=== PATIENT | male | born 1965 | race Caucasian/White ===

== ENCOUNTER 2018-10-22 20:10 | Observation (INO) | payer MEDICAID, SELFPAY ==
[2018-10-22] VITALS (24 sets, daily range): BP systolic 92–133; BP diastolic 50–83; PULSE 54–72; RESP 12–21; TEMP 36.5–36.9; O2SAT 95–98
[2018-10-22 20:24] LABS: Abs Immature Grans 0.02 k/cumm (0.0-0.09); Absolute Basophil Count 0.04 k/cumm (0.0-0.2); Absolute Eosinophil Count 0.26 k/cumm (0.0-0.7); Absolute Lymphocyte Count 2.63 k/cumm (1.2-3.4); Absolute Monocyte Count 1.11 k/cumm (0.11-0.7); Absolute Neutrophil Count 5.06 k/cumm (1.2-6.7); Basophils % 0.4; Eosinophils % 2.9; HCT 37.5 % (40.0-50.0); HGB 12.9 g/dL (13.5-17.5); Immature Grans % 0.2; Lymphocytes % 28.8; Mean Corp. HGB Concentration 34.4 g/dL (32.0-36.0); Mean Corpuscular Hemoglobin 31.1 pg (27.0-33.0); Mean Corpuscular Volume 90.4 fL (80-95); Mean Platelet Volume 11.2 fL (8.0-11.0); Monocytes % 12.2; Neutrophils % 55.5; Platelet Count 216 x1000/uL (130-400); RBC 4.15 m/cumm (4.50-6.00); RBC Distribution Width 12.9 % (11.8-14.1); White Blood Cell Count 9.12 k/cumm (4.4-10.8)
--- NOTE | 2018-10-22 20:24 | W.ED.GENAD ---
Discharge Plan Disposition Patient Disposition: [facility] INPATIENT Condition: Stable Discharge Details Chief Complaint: OD/Poison Clinical Impression: Drug overdose, intentional Primary Care Provider: Bladimir Gomes ED Provider: Myron Guadalupe Home Meds and New Rx's Prescriptions: No Action tizanidine 4 mg Tablet 4 mg PO TID RF: 0 prazosin 1 mg Capsule 1 mg PO QPM RF: 0 citalopram [Celexa] 20 mg Tablet 20 mg PO DAILY RF: 0 buspirone 10 mg Tablet 10 mg PO TID RF: 0 divalproex [Depakote ER] 500 mg Tablet Extended Release 24 Hr 500 mg PO DAILY RF: 0 divalproex [Depakote ER] 500 mg Tablet Extended Release 24 Hr 500 mg PO DAILY RF: 0 Medical Decision Making 53 yo male with hx of depression comes in with chief complaint of SI. He states he has felt depressed for quite sometime and tonight decided to take all his meds around 6pm to try and harm himself. He is unsure how much of each med he took. He is clinically sober, caox4 without deficits on exam and denies alcohol or drug use tonight (does use marijuana occasionally). Is Hd stable. I discusssed case with poison control and they advised not give charcoal given if he becomes somnolent or has n/v would aspirate. They recommend monitoring overnight and q6 hour depakote levels until clear down trending depakote level. Will order tox labs as well and monitor pt remains stable, labs unremarkable, depakote level 57. Given he has to be monitored overnight before he can be medically cleared will admit overnight for repeat depakote levels and monitoring. Differential Diagnosis drug overdose, depression, si Medical Records Medical records reviewed: Yes I reviewed the patient's medical records. Lab Data Lab results reviewed: Yes I reviewed the patient's lab results. ECG Data Attestation: I personally reviewed and interpreted this ECG (s) as follows: Prior ECG tracings: not available for review Interpretation: sinus rhythm, rate of 60, qtc 426, no acute st t wave ischemic findings HPI General Mode of arrival: EMS. Date/Time Provider Initiated Documentation: 10/22/18 20:12. Limitations to Documentation: no limitations. Information obtained by: patient. History of Present Illness 53 year old M presents to the emergency department with the chief complaint of drug overdose , described as moderate, Patient reports no radiation. Patient started experiencing this hour(s) (2) and it has been constant. No relieving factors improve symptom(s), No exacerbating factors reported . Patient notes other (depression). Patient did receive the following treatments prior to arrival, none Related Data Home Medications Medication Instructions Recorded Confirmed buspirone 10 mg PO TID 10/22/18 10/22/18 citalopram [Celexa] 20 mg PO DAILY 10/22/18 10/22/18 divalproex [Depakote ER] 500 mg PO DAILY 10/22/18 10/22/18 divalproex [Depakote ER] 500 mg PO DAILY 10/22/18 10/22/18 prazosin 1 mg PO QPM 10/22/18 10/22/18 tizanidine 4 mg PO TID 10/22/18 10/22/18 Allergies Allergy/AdvReac Type Severity Reaction Status Date / Time trazodone Allergy Unverified 10/22/18 20:13 morphine AdvReac Nausea Unverified 10/22/18 20:13 General Stated Complaint: OD/Poison ZO: 2 Review of Systems Review of Systems All systems reviewed & are unremarkable except as noted in HPI and below Constitutional Denies chills and Denies fever(s) Cardiovascular Denies chest pain and Denies dyspnea Respiratory Denies cough and Denies dyspnea Gastrointestinal Denies abdominal pain, Denies nausea and Denies vomiting Integumentary/Breasts Denies rash PFSH Medical History PTSD (post-traumatic stress disorder) (Acute) Degenerative arthritis (Chronic) Depression (Chronic) Social History Smoking/Tobacco Use Status: Current every day Tobacco Type: cigarettes Tobacco: How many years used: 36 Alcohol Intake: former Drug use: Daily Substance use type: marijuana Do you feel safe at home: No Do you feel safe in your relationship?: No Additional Social history: Pt wont specify why he doesnt feel safe at home, I just dont feel safe anywhere Exam Const General: no acute distress Orientation: alert HENNV Head: normal to inspection Ears: external ears normal General nose exam: external nose normal Mouth: moist mucous membranes Eyes General: appearance normal, both eyes and all related structures Neck Neck: normal visual inspection Resp Effort & Inspection: normal respiratory effort and able to speak in complete sentences Cardio Rate: regular rate Skin General skin exam: no rashes or lesions noted Neuro General: alert and oriented x3 Extrem General: normal to inspection Psych Speech and Movement: speech and movement normal Course Vital Signs Temperature 36.9 C 10/22/18 20:10 Pulse 63 10/22/18 20:10 Respiratory Rate 16 10/22/18 20:10 Blood Pressure 133/83 10/22/18 20:10 Pulse Oximetry 98 10/22/18 20:10 Temperature 36.9 C 10/22/18 20:10 Temperature Source Skin 10/22/18 20:10 Pulse 63 10/22/18 20:10 Respiratory Rate 16 10/22/18 20:10 Blood Pressure 133/83 10/22/18 20:10 Blood Pressure Position Sitting 10/22/18 20:10 Pulse Oximetry 98 10/22/18 20:10 Oxygen Delivery Method Room Air 10/22/18 20:10 Oxygen Flow Rate 0 10/22/18 20:10
--- NOTE | 2018-10-22 20:34 | ED.GENADUL_ITS ---
Discharge Plan Disposition Patient Disposition: [facility] INPATIENT Condition: Stable Discharge Details Chief Complaint: OD/Poison Clinical Impression: Drug overdose, intentional Primary Care Provider: Bladimir Gomes ED Provider: Myron Guadalupe Home Meds and New Rx's Prescriptions: No Action tizanidine 4 mg Tablet 4 mg PO TID RF: 0 prazosin 1 mg Capsule 1 mg PO QPM RF: 0 citalopram [Celexa] 20 mg Tablet 20 mg PO DAILY RF: 0 buspirone 10 mg Tablet 10 mg PO TID RF: 0 divalproex [Depakote ER] 500 mg Tablet Extended Release 24 Hr 500 mg PO DAILY RF: 0 divalproex [Depakote ER] 500 mg Tablet Extended Release 24 Hr 500 mg PO DAILY RF: 0 Medical Decision Making 53 yo male with hx of depression comes in with chief complaint of SI. He states he has felt depressed for quite sometime and tonight decided to take all his meds around 6pm to try and harm himself. He is unsure how much of each med he took. He is clinically sober, caox4 without deficits on exam and denies alcohol or drug use tonight (does use marijuana occasionally). Is Hd stable. I discusssed case with poison control and they advised not give charcoal given if he becomes somnolent or has n/v would aspirate. They recommend monitoring overnight and q6 hour depakote levels until clear down trending depakote level. Will order tox labs as well and monitor pt remains stable, labs unremarkable, depakote level 57. Given he has to be monitored overnight before he can be medically cleared will admit overnight for repeat depakote levels and monitoring. Differential Diagnosis drug overdose, depression, si Medical Records Medical records reviewed: Yes I reviewed the patient's medical records. Lab Data Lab results reviewed: Yes I reviewed the patient's lab results. ECG Data Attestation: I personally reviewed and interpreted this ECG (s) as follows: Prior ECG tracings: not available for review Interpretation: sinus rhythm, rate of 60, qtc 426, no acute st t wave ischemic findings HPI General Mode of arrival: EMS . Date/Time Provider Initiated Documentation: 10/22/18 20:12 . Limitations to Documentation: no limitations . Information obtained by: patient . History of Present Illness 53 year old M presents to the emergency department with the chief complaint of drug overdose , described as moderate, Patient reports no radiation. Patient started experiencing this hour(s) (2) and it has been constant. No relieving factors improve symptom(s), No exacerbating factors reported . Patient notes other (depression). Patient did receive the following treatments prior to arrival, none Related Data Home Medications Medication Instructions Recorded Confirmed buspirone 10 mg PO TID 10/22/18 10/22/18 citalopram [Celexa] 20 mg PO DAILY 10/22/18 10/22/18 divalproex [Depakote ER] 500 mg PO DAILY 10/22/18 10/22/18 divalproex [Depakote ER] 500 mg PO DAILY 10/22/18 10/22/18 prazosin 1 mg PO QPM 10/22/18 10/22/18 tizanidine 4 mg PO TID 10/22/18 10/22/18 Allergies Allergy/AdvReac Type Severity Reaction Status Date / Time trazodone Allergy Unverified 10/22/18 20:13 morphine AdvReac Nausea Unverified 10/22/18 20:13 General Stated Complaint: OD/Poison ZO: 2 Review of Systems Review of Systems All systems reviewed & are unremarkable except as noted in HPI and below Constitutional Denies chills and Denies fever(s) Cardiovascular Denies chest pain and Denies dyspnea Respiratory Denies cough and Denies dyspnea Gastrointestinal Denies abdominal pain, Denies nausea and Denies vomiting Integumentary/Breasts Denies rash PFSH Medical History PTSD (post-traumatic stress disorder) (Acute) Degenerative arthritis (Chronic) Depression (Chronic) Social History Smoking/Tobacco Use Status: Current every day Tobacco Type: cigarettes Tobacco: How many years used: 36 Alcohol Intake: former Drug use: Daily Substance use type: marijuana Do you feel safe at home: No Do you feel safe in your relationship?: No Additional Social history: Pt wont specify why he doesnt feel safe at home, I just dont feel safe anywhere Exam Const General: no acute distress Orientation: alert HENRI Head: normal to inspection Ears: external ears normal General nose exam: external nose normal Mouth: moist mucous membranes Eyes General: appearance normal, both eyes and all related structures Neck Neck: normal visual inspection Resp Effort & Inspection: normal respiratory effort and able to speak in complete sentences Cardio Rate: regular rate Skin General skin exam: no rashes or lesions noted Neuro General: alert and oriented x3 Extrem General: normal to inspection Psych Speech and Movement: speech and movement normal Course Vital Signs Temperature 36.9 C 10/22/18 20:10 Pulse 63 10/22/18 20:10 Respiratory Rate 16 10/22/18 20:10 Blood Pressure 133/83 10/22/18 20:10 Pulse Oximetry 98 10/22/18 20:10 Temperature 36.9 C 10/22/18 20:10 Temperature Source Skin 10/22/18 20:10 Pulse 63 10/22/18 20:10 Respiratory Rate 16 10/22/18 20:10 Blood Pressure 133/83 10/22/18 20:10 Blood Pressure Position Sitting 10/22/18 20:10 Pulse Oximetry 98 10/22/18 20:10 Oxygen Delivery Method Room Air 10/22/18 20:10 Oxygen Flow Rate 0 10/22/18 20:10
[2018-10-22] MEDS: Nicotine 21 MG/24 HR PATCH (20:35)
[2018-10-22 20:36] LABS: PTT Activated 22.2 sec (21.0-31.4); Prothrombin Time 9.7 sec (9.3-11.0)
[2018-10-22 20:38] LABS: ALT 16 U/L (12-78); AST 8 U/L (15-37); Albumin 3.1 g/dL (3.4-5.0); Alkaline Phosphatase 82 U/L (46-116); Anion Gap 9.1 mmol/L (3-11); BUN 16 mg/dL (7-18); Bilirubin, Total 0.1 mg/dL (0.2-1.0); CO2 25.9 mmol/L (21.0-32.0); CREATININE 0.91 mg/dL (0.70-1.30); Calcium 8.1 mg/dL (8.5-10.1); Chloride 110 mmol/L (98-107); Glucose 92 mg/dL (70-100); Magnesium 2.1 mg/dL (1.8-2.4); Potassium 3.4 mmol/L (3.5-5.1); Sodium 145 mmol/L (136-145); Total Protein 5.8 g/dL (6.4-8.2)
[2018-10-22 20:45] LABS: Acetaminophen < 2 ug/mL (10-30); ETHANOL BLOOD < 3.0 mg/dL (<3); VALPROIC ACID 57.7 ug/mL (50-100)
[2018-10-22 20:50] LABS: Bilirubin Negative (Negative); Blood Negative (Negative); Clarity Clear; Glucose Negative (Negative); Ketones Negative (Negative); Leukocyte Esterase Negative (Negative); Nitrite Negative (Negative); Urobilinogen 0.2 EU/dL (Up TO 0.2); pH 6.5 (5-8)
[2018-10-22 20:56] LABS: *AMPHETAMINES SCREEN URINE Negative (Negative); *BARBITURATES SCREEN URINE Negative (Negative); *BENZODIAZEPINES SCREEN URINE Negative (Negative); Cannabinoids THC POSITIVE (Negative); Cocaine Screen,Urine Negative (Negative); METHADONE URINE SCREEN Negative (Negative); OPIATES URINE SCREEN Negative (Negative); Tricyclic Antidepressants Negative (Negative)
[2018-10-22] MEDS: LORazepam 1 MG TAB PO (21:08)
--- NOTE | 2018-10-22 21:43 | HPE_ITS ---
Date of service: 10/22/18 Time of Service: 21:34 Assessment and Plan (1) Overdose: Current visit: Yes Status: Acute Drug OD with suicidal ideation. Clinically stable. Will monitor on telemetry with serial Depakote levels. Once medically cleared will have mental health consult. Will of course hold all usual medications. History of Present Illness Chief Complaint: OD Narrative: 53 male with h/o depression, PTSD, anxiety -- says he has been frustrated at not feeling well and tonight took about thirty of his various pills, which include Buspar, Celexa, Depakote, Prazosin, and Zanaflex. In ER was [id number] stable, Depakote level 56. Poison control advised monitor with periodic Depakote levls until decreasing. Patient admitted for further management. Aside from a certain restlessness patient states he feels his usual self. Review of Systems Review of Systems All systems reviewed & are unremarkable except as noted in HPI and below PFSH Medical History PTSD (post-traumatic stress disorder) (Acute) Degenerative arthritis (Chronic) Depression (Chronic) Social History Smoking/Tobacco Use Status: Current every day Tobacco Type: cigarettes Tobacco: How many years used: 36 Alcohol Intake: former Drug use: Daily Substance use type: marijuana Do you feel safe at home: No Do you feel safe in your relationship?: No Additional Social history: Pt wont specify why he doesnt feel safe at home, I just dont feel safe anywhere Meds Home Medications Medication Instructions Recorded Confirmed Type buspirone 10 mg PO TID 10/22/18 10/22/18 History citalopram [Celexa] 20 mg PO DAILY 10/22/18 10/22/18 History divalproex [Depakote ER] 500 mg PO DAILY 10/22/18 10/22/18 History divalproex [Depakote ER] 500 mg PO DAILY 10/22/18 10/22/18 History prazosin 1 mg PO QPM 10/22/18 10/22/18 History tizanidine 4 mg PO TID 10/22/18 10/22/18 History Allergies Allergy/AdvReac Type Severity Reaction Status Date / Time trazodone Allergy Unverified 10/22/18 20:13 morphine AdvReac Nausea Unverified 10/22/18 20:13 Exam Narrative Exam Narrative: 123/79, 72, 18, 36.9, 97%sat. HEENT atraumatic, neck supple, lungs clear, heart RRR, abdomen +BS, soft and NT, /rectal deferred, extr no edema, neuro Ox3, lucid, non-focal Results Labs : 10/22/18 20:14 10/22/18 20:14 Laboratory Results - last 24 hr 10/22/18 10/22/18 10/22/18 20:14 20:14 20:14 WBC RBC Hgb Hct MCV MCH MCHC RDW Plt Count MPV Immature Gran % Neutrophils % Lymphocytes % Monocytes % Eosinophils % Basophils % Absolute Neutrophils Absolute Lymphocytes Absolute Monocytes Absolute Eosinophils Absolute Basophils PT INR APTT Sodium 145 Potassium 3.4 L Chloride 110 H Carbon Dioxide 25.9 Anion Gap 9.1 BUN 16 Creatinine 0.91 Estimated GFR/1.73 m2 >= 60.00 Glucose 92 Calcium 8.1 L Magnesium 2.1 Total Bilirubin 0.1 L AST 8 L ALT 16 Alkaline Phosphatase 82 Total Protein 5.8 L Albumin 3.1 L Urine Color Urine Clarity Urine pH Ur Specific [place] Urine Protein Urine Ketones Urine Blood Urine Nitrite Urine Bilirubin Urine Urobilinogen Ur Leukocyte Esterase Urine Glucose Urine Opiates Screen Urine Methadone Screen Acetaminophen < 2 L Ur Barbiturates Screen Total Valproic Acid 57.7 Ur Tricyclics Screen Ur Amphetamines Screen U Benzodiazepines Scrn Urine Cocaine Screen Ur THC Screen Ethyl Alcohol < 3.0 10/22/18 10/22/18 10/22/18 20:14 20:14 20:35 WBC 9.12 RBC 4.15 L Hgb 12.9 L Hct 37.5 L MCV 90.4 MCH 31.1 MCHC 34.4 RDW 12.9 Plt Count 216 MPV 11.2 H Immature Gran % 0.2 Neutrophils % 55.5 Lymphocytes % 28.8 Monocytes % 12.2 Eosinophils % 2.9 Basophils % 0.4 Absolute Neutrophils 5.06 Absolute Lymphocytes 2.63 Absolute Monocytes 1.11 H Absolute Eosinophils 0.26 Absolute Basophils 0.04 PT 9.7 INR 1.0 APTT 22.2 Sodium Potassium Chloride Carbon Dioxide Anion Gap BUN Creatinine Estimated GFR/1.73 m2 Glucose Calcium Magnesium Total Bilirubin AST ALT Alkaline Phosphatase Total Protein Albumin Urine Color Yellow Urine Clarity Clear Urine pH 6.5 Ur Specific [place] 1.010 Urine Protein Negative Urine Ketones Negative Urine Blood Negative Urine Nitrite Negative Urine Bilirubin Negative Urine Urobilinogen 0.2 Ur Leukocyte Esterase Negative Urine Glucose Negative Urine Opiates Screen Urine Methadone Screen Acetaminophen Ur Barbiturates Screen Total Valproic Acid Ur Tricyclics Screen Ur Amphetamines Screen U Benzodiazepines Scrn Urine Cocaine Screen Ur THC Screen Ethyl Alcohol 10/22/18 20:35 WBC RBC Hgb Hct MCV MCH MCHC RDW Plt Count MPV Immature Gran % Neutrophils % Lymphocytes % Monocytes % Eosinophils % Basophils % Absolute Neutrophils Absolute Lymphocytes Absolute Monocytes Absolute Eosinophils Absolute Basophils PT INR APTT Sodium Potassium Chloride Carbon Dioxide Anion Gap BUN Creatinine Estimated GFR/1.73 m2 Glucose Calcium Magnesium Total Bilirubin AST ALT Alkaline Phosphatase Total Protein Albumin Urine Color Urine Clarity Urine pH Ur Specific [place] Urine Protein Urine Ketones Urine Blood Urine Nitrite Urine Bilirubin Urine Urobilinogen Ur Leukocyte Esterase Urine Glucose Urine Opiates Screen Negative Urine Methadone Screen Negative Acetaminophen Ur Barbiturates Screen Negative Total Valproic Acid Ur Tricyclics Screen Negative Ur Amphetamines Screen Negative U Benzodiazepines Scrn Negative Urine Cocaine Screen Negative Ur THC Screen Positive Ethyl Alcohol Last Vital Signs Temp 36.9 C 10/22/18 20:10 Pulse 68 10/22/18 20:46 Resp 18 10/22/18 21:10 BP 123/72 10/22/18 20:46 Pulse Ox 97 10/22/18 21:10
--- NOTE | 2018-10-22 22:18 | PDOC.CMSAFED ---
Care Management Safety Plan S/O: Stevie has been medicated with Ativan 1.0 mg P.0. and is sound asleep at this time. Unable to interview him. Review of records shows that this is the first ER visit at [facility] since 2010 and he gets most of his care through [facility] and the [facility]. According to the physician documentation and report from Nursing, Stevie intentionally swallowed a large number of pills from 4 bottles of his home medications. One of the medications was Depakote. Apparently he has been quite depressed over his current life situation. Lives with his mother in [facility] and suffers from PTSD, MS, Chronic pain and is now . He is a smoker. Nurse reports that he clearly stated he knows his rights and can not be held here against his will. Has been cooperative. Nicotine patch applied and he did eat a light meal. Physician stated he will need to be monitored for at least 12 hours before before examination for medical clearance and MH Consult for Psyh Eval. Will need to be on telemetry overnight. Nursing reports that Stevie stated he did not intend t kill himself he just wanted all of the pain to stop and impulsively swallowed his pills. [facility] brick kiln worker was contacted and an ambulance was sent to his home. CM will respond to assess patient after patient has been medically cleared and assessed by screener. If screener deems patient meets criteria for psychiatric stabilization CM will facilitate interdepartmental huddle with [facility] screener for safety planning considerations and meet with patient to review [facility] policy and safety plan, establish individual wishes for treatment and maintain patient rights. In the interim; please note safety plan below to guide patient care while awaiting further assessment and medical clearance. Huddle: 22:00 Dr. Aceves, Kacy Castillo, Hazardous Materials Driver, SRIDEVI Tripp, SRIDEVI Kauffman-DEVIN INTERIM SAFETY PLAN: 10/22/18 22:30 ED Room #2 and transfer to /S Room 226 WB 1. Will remain on suicide precautions and in paper clothes. 2. Will remain in room under direct supervision of one-on-one staff at all times provided by [employer], JASON, GROUP HOME PARAPROFESSIONAL benzol operator. 3. May have paper cups, plates, finger foods as well as a safety spoon with which to eat meals. [facility] staff will be responsible for accounting of utensils after meals. 4. Follow [facility] Management of the Admitted Behavioral Health Patient policy. 5. Comfort bath system only. 6. No personal belongings 7. No visitors tonight. If deemed appropriate for inpatient psychiatric care, safety plan will be established with patient, and care team, to adhere to patient goals, identify restrictions based on behavioral status, address nutrition, and determine allowed personal belongings, tools for hygiene and personal care. As well plan will determine level of activity including ambulation, level of supervision, visitors, and determine privileges based on level of acuity, behaviors and level of engagement by patient.
--- NOTE | 2018-10-22 22:51 | CMSP_ITS ---
Care Management Safety Plan S/O: Stevie has been medicated with Ativan 1.0 mg P.0. and is sound asleep at this time. Unable to interview him. Review of records shows that this is the first ER visit at [facility] since 2010 and he gets most of his care through [facility] and the [facility]. According to the physician documentation and report from Nursing, Stevie intentionally swallowed a large number of pills from 4 bottles of his home medications. One of the medications was Depakote. Apparently he has been quite depressed over his current life situation. Lives with his mother in [facility] and suffers from PTSD, MS, Chronic pain and is now . He is a smoker. Nurse reports that he clearly stated he knows his rights and can not be held here against his will. Has been cooperative. Nicotine patch applied and he did eat a light meal. Physician stated he will need to be monitored for at least 12 hours before before examination for medical clearance and MH Consult for Psyh Eval. Will need to be on telemetry overnight. Nursing reports that Stevie stated he did not intend t kill himself he just wanted all of the pain to stop and impulsively swallowed his pills. [facility] grommet worker was contacted and an ambulance was sent to his home. CM will respond to assess patient after patient has been medically cleared and assessed by screener. If screener deems patient meets criteria for psychiatric stabilization CM will facilitate interdepartmental huddle with [facility] screener for safety planning considerations and meet with patient to review [facility] policy and safety plan, establish individual wishes for treatment and maintain patient rights. In the interim; please note safety plan below to guide patient care while awaiting further assessment and medical clearance. Huddle: 22:00 Dr. Aceves, Kacy Castillo, Market Development Analyst, SRIDEVI Tripp, SRIDEVI Kauffman-DEVIN INTERIM SAFETY PLAN: 10/22/18 22:30 ED Room #2 and transfer to /S Room 226 WB 1. Will remain on suicide precautions and in paper clothes. 2. Will remain in room under direct supervision of one-on-one staff at all times provided by CPS[employer], JASON, VICE PRESIDENT COMPLIANCE mammography supervisor. 3. May have paper cups, plates, finger foods as well as a safety spoon with which to eat meals. [facility] staff will be responsible for accounting of utensils after meals. 4. Follow [facility] Management of the Admitted Behavioral Health Patient policy. 5. Comfort bath system only. 6. No personal belongings 7. No visitors tonight. If deemed appropriate for inpatient psychiatric care, safety plan will be established with patient, and care team, to adhere to patient goals, identify restrictions based on behavioral status, address nutrition, and determine allowed personal belongings, tools for hygiene and personal care. As well plan will determine level of activity including ambulation, level of supervision, visitors, and determine privileges based on level of acuity, behaviors and level of engagement by patient.
[2018-10-23 07:18] VITALS: PULSE 65
[2018-10-23 08:30] VITALS: BP 113/73; PULSE 74; RESP 16; TEMP 37.1; O2SAT 96
[2018-10-23 09:10] LABS: Anion Gap 7.6 mmol/L (3-11); BUN 15 mg/dL (7-18); CO2 26.4 mmol/L (21.0-32.0); CREATININE 0.95 mg/dL (0.70-1.30); Calcium 8.1 mg/dL (8.5-10.1); Chloride 111 mmol/L (98-107); Glucose 100 mg/dL (70-100); Potassium 4.3 mmol/L (3.5-5.1); Sodium 145 mmol/L (136-145)
[2018-10-23] MEDS: Potassium Chloride 20 MEQ TABCR 40 MEQ PO (09:16)
[2018-10-23 09:46] LABS: VALPROIC ACID 126.7 ug/mL (50-100)
--- NOTE | 2018-10-23 10:18 | NUR.NOTE ---
Spoke with poison control center about patient's labs. Poison control center recommended checking patient's valproic acid levels every six hours. Poison control media sales representative stated she would call back later in the day to check in with nursing. Nursing also spoke with provider about patient's lab results, currently awaiting orders. Nursing Note:
--- NOTE | 2018-10-23 10:30 | NUR.NOTE ---
Nursing Note: 1028 Spoke with laboratory regarding amonia level, lab stated will be up to draw shortly.
[2018-10-23 11:31] LABS: Ammonia 105 umol/L (11-32)
[2018-10-23] MEDS: Normal Saline Flush 10 ML SYR IVP (11:33)
[2018-10-23] MEDS: Normal Saline 1,000 ML 75 ML IV (11:34)
[2018-10-23 11:53] VITALS: BP 114/71; PULSE 66; RESP 16; TEMP 37.4; O2SAT 99
--- NOTE | 2018-10-23 11:57 | PDOC.MHCN ---
Date of service: 10/23/18 Time of Service: 11:57 Mental Health Crisis Note Presenting Issue How did you arrive at the ED and why did you come: Stevie comes to the ER via ambulance after ingesting approximately 30 pills in a suicide attempt. Precipitating Factors Stevie denies current suicidal ideation and states that yesterday he became overwhelmed and took a bunch of pills as he wanted to just go to sleep. He states that as soon as he swallowed the pills, he regretted it and called the ambulance so he could be transported to the hospital. Stevie admits that he struggles with depression but states he does not want to . Disposition BEHAVIOR: Cooperative. EYE CONTACT: Good. MOOD: Calm. AFFECT: Congruent to mood. APPETITE: Reported as poor. SLEEP(trouble falling/staying asleep: Stevie reports trouble staying asleep at night. Plan Stevie refuses a voluntary hospitalization and he does not meet criteria for an involuntary placement as he is denying current SI and expresses remorse over taking the overdose yesterday. Stevie signs a release for his primary care physician's office. I will contact his PCP to ensure a follow-up appointment is scheduled for Stevie in the near future. He is provided contact information for [facility] emergency services and he will call as needed. Signature Clinician's Name/Title: Oralia Reyes BA, [facility] Mosquito Sprayer
--- NOTE | 2018-10-23 12:09 | PDOC.MHCN_ITS ---
Date of service: 10/23/18 Time of Service: 11:57 Mental Health Crisis Note Presenting Issue How did you arrive at the ED and why did you come: Stevie comes to the ER via ambulance after ingesting approximately 30 pills in a suicide attempt. Precipitating Factors Stevie denies current suicidal ideation and states that yesterday he became overwhelmed and took a bunch of pills as he wanted to just go to sleep. He states that as soon as he swallowed the pills, he regretted it and called the ambulance so he could be transported to the hospital. Stevie admits that he struggles with depression but states he does not want to . Disposition BEHAVIOR: Cooperative. EYE CONTACT: Good. MOOD: Calm. AFFECT: Congruent to mood. APPETITE: Reported as poor. SLEEP(trouble falling/staying asleep: Stevie reports trouble staying asleep at night. Plan Stevie refuses a voluntary hospitalization and he does not meet criteria for an involuntary placement as he is denying current SI and expresses remorse over taking the overdose yesterday. Stevie signs a release for his primary care physician's office. I will contact his PCP to ensure a follow-up appointment is scheduled for Stevie in the near future. He is provided contact information for [facility] emergency services and he will call as needed. Signature Clinician's Name/Title: Oralia Reyes BA, [facility] Processing Rep
[2018-10-23 12:29] LABS: Salicylate 2.8 mg/dL (2.8-20.0)
--- NOTE | 2018-10-23 14:51 | NUR.NOTE ---
Neuro checks started on patient due to lab result on ammonia levels (105). Nursing also passing on in report to check patient for confusion, lethargy, vomiting, or seizures. Q4 vital signs done this shift related to labs/condition.Nursing Note:
[2018-10-23 15:44] LABS: VALPROIC ACID 119.8 ug/mL (50-100)
[2018-10-23 15:58] VITALS: PULSE 66
--- NOTE | 2018-10-23 16:07 | PGE_ITS ---
Date of Service Date of service: 10/23/18 Time of Service: 16:06 Objective Objective Clinical Data: Abnormal lab results 10/22/18 10/22/18 10/22/18 Range/Units 20:14 20:14 20:14 RBC 4.15 L (4.50-6.00) m/cumm Hgb 12.9 L (13.5-17.5) g/dL Hct 37.5 L (40.0-50.0) % MPV 11.2 H (8.0-11.0) fL Absolute Monocytes 1.11 H (0.11-0.7) k/cumm Potassium 3.4 L (3.5-5.1) mmol/L Chloride 110 H (98-107) mmol/L Calcium 8.1 L (8.5-10.1) mg/dL Total Bilirubin 0.1 L (0.2-1.0) mg/dL AST 8 L (15-37) U/L Ammonia (11-32) umol/L Total Protein 5.8 L (6.4-8.2) g/dL Albumin 3.1 L (3.4-5.0) g/dL Acetaminophen < 2 L (10-30) ug/mL Total Valproic Acid (50-100) ug/mL 10/23/18 10/23/18 10/23/18 Range/Units 08:45 08:45 11:15 RBC (4.50-6.00) m/cumm Hgb (13.5-17.5) g/dL Hct (40.0-50.0) % MPV (8.0-11.0) fL Absolute Monocytes (0.11-0.7) k/cumm Potassium (3.5-5.1) mmol/L Chloride 111 H (98-107) mmol/L Calcium 8.1 L (8.5-10.1) mg/dL Total Bilirubin (0.2-1.0) mg/dL AST (15-37) U/L Ammonia 105 H (11-32) umol/L Total Protein (6.4-8.2) g/dL Albumin (3.4-5.0) g/dL Acetaminophen (10-30) ug/mL Total Valproic Acid 126.7 H (50-100) ug/mL 10/23/18 Range/Units 15:12 RBC (4.50-6.00) m/cumm Hgb (13.5-17.5) g/dL Hct (40.0-50.0) % MPV (8.0-11.0) fL Absolute Monocytes (0.11-0.7) k/cumm Potassium (3.5-5.1) mmol/L Chloride (98-107) mmol/L Calcium (8.5-10.1) mg/dL Total Bilirubin (0.2-1.0) mg/dL AST (15-37) U/L Ammonia (11-32) umol/L Total Protein (6.4-8.2) g/dL Albumin (3.4-5.0) g/dL Acetaminophen (10-30) ug/mL Total Valproic Acid 119.8 H (50-100) ug/mL Vital Signs Temperature 37.4 C 10/23/18 11:53 Temperature Source Temporal Artery Scan 10/23/18 11:53 Pulse 66 10/23/18 11:53 Pulse Rhythm Regular 10/23/18 08:04 Pulse 69 10/22/18 22:20 Respiratory Rate 16 10/23/18 11:53 Respiratory Effort Non-Labored 10/23/18 08:04 Respiratory Depth Normal 10/23/18 08:04 Respiratory Pattern Normal 10/23/18 08:04 Blood Pressure 114/71 10/23/18 11:53 Blood Pressure Mean 69 10/22/18 22:16 Blood Pressure Position Sitting 10/22/18 20:10 Pulse Oximetry 99 10/23/18 11:53 Oxygen Delivery Method Room Air 10/23/18 11:53 Oxygen Flow Rate 0 10/23/18 11:53 Pain Level 0 10/23/18 11:53 Intake & Output 10/22/18 10/23/18 10/23/18 23:59 11:59 23:59 Intake Total 999 / 999 Output Total Balance 1000 / 1000 - Weight 78.8 kg Intake: IV 999 / 999 Output: Urine Other: Urine Color Light Na Urine Appearance Clear Clear Urine Odor Normal Comment First void this shift Laboratory Results WBC 9.12 k/cumm (4.4-10.8) 10/22/18 20:14 RBC 4.15 m/cumm (4.50-6.00) L 10/22/18 20:14 Hgb 12.9 g/dL (13.5-17.5) L 10/22/18 20:14 Hct 37.5 % (40.0-50.0) L 10/22/18 20:14 MCV 90.4 fL (80-95) 10/22/18 20:14 MCH 31.1 pg (27.0-33.0) 10/22/18 20:14 MCHC 34.4 g/dL (32.0-36.0) 10/22/18 20:14 RDW 12.9 % (11.8-14.1) 10/22/18 20:14 Plt Count 216 x1000/uL (130-400) 10/22/18 20:14 MPV 11.2 fL (8.0-11.0) H 10/22/18 20:14 Immature Gran % 0.2 10/22/18 20:14 Neutrophils % 55.5 10/22/18 20:14 Lymphocytes % 28.8 10/22/18 20:14 Monocytes % 12.2 10/22/18 20:14 Eosinophils % 2.9 10/22/18 20:14 Basophils % 0.4 10/22/18 20:14 Absolute Neutrophils 5.06 k/cumm (1.2-6.7) 10/22/18 20:14 Absolute Lymphocytes 2.63 k/cumm (1.2-3.4) 10/22/18 20:14 Absolute Monocytes 1.11 k/cumm (0.11-0.7) H 10/22/18 20:14 Absolute Eosinophils 0.26 k/cumm (0.0-0.7) 10/22/18 20:14 Absolute Basophils 0.04 k/cumm (0.0-0.2) 10/22/18 20:14 PT 9.7 sec (9.3-11.0) 10/22/18 20:14 INR 1.0 (0.9-1.1) 10/22/18 20:14 APTT 22.2 sec (21.0-31.4) 10/22/18 20:14 Sodium 145 mmol/L (136-145) 10/23/18 08:45 Potassium 4.3 mmol/L (3.5-5.1) D 10/23/18 08:45 Chloride 111 mmol/L (98-107) H 10/23/18 08:45 Carbon Dioxide 26.4 mmol/L (21.0-32.0) 10/23/18 08:45 Anion Gap 7.6 mmol/L (3-11) 10/23/18 08:45 BUN 15 mg/dL (7-18) 10/23/18 08:45 Creatinine 0.95 mg/dL (0.70-1.30) 10/23/18 08:45 Estimated GFR/1.73 m2 >= 60.00 (mL/min/1.73m2) 10/23/18 08:45 Glucose 100 mg/dL (70-100) 10/23/18 08:45 Calcium 8.1 mg/dL (8.5-10.1) L 10/23/18 08:45 Magnesium 2.1 mg/dL (1.8-2.4) 10/22/18 20:14 Total Bilirubin 0.1 mg/dL (0.2-1.0) L 10/22/18 20:14 AST 8 U/L (15-37) L 10/22/18 20:14 ALT 16 U/L (12-78) 10/22/18 20:14 Alkaline Phosphatase 82 U/L (46-116) 10/22/18 20:14 Ammonia 105 umol/L (11-32) H 10/23/18 11:15 Total Protein 5.8 g/dL (6.4-8.2) L 10/22/18 20:14 Albumin 3.1 g/dL (3.4-5.0) L 10/22/18 20:14 Acetylsalicylic Ac Allg Cancelled 10/23/18 08:45 Urine Color Yellow (Yellow) 10/22/18 20:35 Urine Clarity Clear 10/22/18 20:35 Urine pH 6.5 (5-8) 10/22/18 20:35 Ur Specific [place] 1.010 (1.005-1.025) 10/22/18 20:35 Urine Protein Negative mg/dL (Negative) 10/22/18 20:35 Urine Ketones Negative mg/dL (Negative) 10/22/18 20:35 Urine Blood Negative (Negative) 10/22/18 20:35 Urine Nitrite Negative (Negative) 10/22/18 20:35 Urine Bilirubin Negative (Negative) 10/22/18 20:35 Urine Urobilinogen 0.2 EU/dL (Up TO 0.2) 10/22/18 20:35 Ur Leukocyte Esterase Negative (Negative) 10/22/18 20:35 Urine Glucose Negative mg/dL (Negative) 10/22/18 20:35 Salicylates 2.8 mg/dL (2.8-20.0) 10/23/18 08:45 Urine Opiates Screen Negative (Negative) 10/22/18 20:35 Urine Methadone Screen Negative (Negative) 10/22/18 20:35 Acetaminophen < 2 ug/mL (10-30) L 10/22/18 20:14 Ur Barbiturates Screen Negative (Negative) 10/22/18 20:35 Total Valproic Acid 119.8 ug/mL (50-100) H 10/23/18 15:12 Ur Tricyclics Screen Negative (Negative) 10/22/18 20:35 Ur Amphetamines Screen Negative (Negative) 10/22/18 20:35 U Benzodiazepines Scrn Negative (Negative) 10/22/18 20:35 Urine Cocaine Screen Negative (Negative) 10/22/18 20:35 Ur THC Screen Positive (Negative) 10/22/18 20:35 Ethyl Alcohol < 3.0 mg/dL (<3) 10/22/18 20:14
--- NOTE | 2018-10-23 16:12 | NUR.NOTE ---
Patient requested to make a phone call, and daycare provider (Randi) agreed. Shortly after the patient told nursing he would be leaving. Provider has spoken to the patient and explained the patient's current status and risk associated with his condition. Patient still requests to leave AMA and is awaiting his ride. Nursing Note:
--- NOTE | 2018-10-23 16:26 | W.PM.DS.N ---
Date of service: 10/23/18 Time of Service: 18:00 DS: Diagnosis Discharge Diagnosis (1) Overdose: Status: Acute Discharge Plan Disposition Patient Disposition: AGAINST MEDICAL ADVICE Condition: Stable Discharge Details Reason For Visit: DRUG OD Admit Date/Time: 10/22/18 21:45 Admit Provider: Raymundo Aceves Attending Provider: Raymundo Aceves Primary Care Provider: Bladimir Gomes Hospital Course Hospital Course: Mr. Billingsley is a 53 year old man with a past medical history significant for PTSD and depression who presented to the ED last evening, 10/22/18, after taking about thirty of a variety of his medications. He takes Buspar, Celexa, Prazosin, Depakote and Tizanidine. Poison control was contacted and recommended monitoring periodic Depakote levels until decreasing. His initial depakote level was within the therapeutic range at 57.7, repeat was elevated at 126.7, this afternoon it has decreased to 119.8. His ammonia level was elevated at 105. He felt groggy, but otherwise had stable vital signs, no confusion, vomiting, lethargy, seizures, hepatotoxicity. He states he took the medication because he wanted to sleep. He denied suicidal ideation to me, however, he verbalized to nursing that he has contemplated suicide in the recent past. Poison control recommended Carnitine supplementation, however, we did not have L-Carnitine available at the pharmacy. The pharmacy was working on contacting local pharmacies to get the supplement here, however, the patient states he is leaving A. Dr. Andrade attempted to talk to the patient and encourage him to stay for proper treatment of the hyperammonemia and for follow up labs in the morning, however, he was not willing to stay. His case was discussed with Davida Call, manufacturing millwright who follows him at [facility] in [place]. She plans to see the patient on 10/28/18 at 1430. She agrees with discontinuing Depakote. She will follow up on his outpatient labs. He has ammonia, CMP (to assess liver function and electrolytes), and Depakote level ordered for tomorrow. He verbalized agreement to return to the hospital tomorrow for a lab draw with Dr. Andrade. He was seen by Mental health due to concern related to medication overdose and possible suicidal ideation, however, he stated to mental health that he struggles with depression but he does not want to . He reports regretting swallowing the pills immediately after he took them and alerted EMS for transport to the hospital. He refused voluntary hospitalization, he did not meet criteria for involuntary placement as he denies suicidal ideation. 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 Home Meds and New Rx's Prescriptions: Discontinued divalproex [Depakote ER] 500 mg Tablet Extended Release 24 Hr 500 mg PO DAILY RF: 0 divalproex [Depakote ER] 500 mg Tablet Extended Release 24 Hr 500 mg PO DAILY RF: 0 No Action tizanidine 4 mg Tablet 4 mg PO TID RF: 0 prazosin 1 mg Capsule 1 mg PO QPM RF: 0 citalopram [Celexa] 20 mg Tablet 20 mg PO DAILY RF: 0 buspirone 10 mg Tablet 10 mg PO TID RF: 0 Discharge Instructions Stand Alone Forms: Nursing Discharge Form Referrals: Bladimir Gomes [Primary Care Provider] - Activity:: Activity as Tolerated Equipment/Supplies:: No Equipment Needed Diet:: As Tolerated Discharge Orders Other Ambulatory Orders: Ammonia (DAILY AM) Timeframe: 20181025 Location: Determined by Patient Ordered By: Mamie Roberson Comprehensive Metabolic Panel (Routine) Timeframe: 1 Day Location: Determined by Patient Ordered By: Mamie Roberson Valproic Acid (Routine) Timeframe: 1 Day Location: Determined by Patient Ordered By: Mamie Roberson Exam Narrative Exam Narrative: General: laying in bed with head covered with blankets. Answers questions, makes eye contact. HEENT: normocephalic, atraumatic, mucous membranes moist. Neck: supple, no JVD. Respiratory: respirations even and unlabored, lung sounds clear bilaterally. Cardiovascular: heart has regular rate and rhythm, no murmur appreciated. GI: abdomen soft, nontender on palpation, normoactive bowel sounds. Extremities: no clubbing, cyanosis or edema. Skin: several tattoos, no open areas noted. DS: Data Vitals/I&O Vitals and I&O: Vital Signs Temperature 37.4 C 10/23/18 11:53 Temperature Source Temporal Artery Scan 10/23/18 11:53 Pulse 66 10/23/18 15:58 Pulse Rhythm Regular 10/23/18 08:04 Pulse 69 10/22/18 22:20 Respiratory Rate 16 10/23/18 11:53 Respiratory Effort Non-Labored 10/23/18 08:04 Respiratory Depth Normal 10/23/18 08:04 Respiratory Pattern Normal 10/23/18 08:04 Blood Pressure 114/71 10/23/18 11:53 Blood Pressure Mean 69 10/22/18 22:16 Blood Pressure Position Sitting 10/22/18 20:10 Pulse Oximetry 99 10/23/18 11:53 Oxygen Delivery Method Room Air 10/23/18 11:53 Oxygen Flow Rate 0 10/23/18 11:53 Pain Level 0 10/23/18 11:53 Intake & Output 10/22/18 10/23/18 10/23/18 23:59 11:59 23:59 Intake Total 1000 / 1000 Output Total Balance 1000 / 1000 - Weight 78.8 kg Intake: IV 1000 / 1000 Output: Urine Other: Urine Color Light Na Urine Appearance Clear Clear Urine Odor Normal Comment First void this shift Labs on day of discharge: Labs from last 24 hours 10/23/18 10/23/18 10/23/18 21:00 15:12 11:15 WBC RBC Hgb Hct MCV MCH MCHC RDW Plt Count MPV Immature Gran % Neutrophils % Lymphocytes % Monocytes % Eosinophils % Basophils % Absolute Neutrophils Absolute Lymphocytes Absolute Monocytes Absolute Eosinophils Absolute Basophils PT INR APTT Sodium Potassium Chloride Carbon Dioxide Anion Gap BUN Creatinine Estimated GFR/1.73 m2 Glucose Calcium Magnesium Total Bilirubin AST ALT Alkaline Phosphatase Ammonia 105 H Total Protein Albumin Acetylsalicylic Ac Allg Urine Color Urine Clarity Urine pH Ur Specific [place] Urine Protein Urine Ketones Urine Blood Urine Nitrite Urine Bilirubin Urine Urobilinogen Ur Leukocyte Esterase Urine Glucose Salicylates Urine Opiates Screen Urine Methadone Screen Acetaminophen Ur Barbiturates Screen Total Valproic Acid Pending 119.8 H Ur Tricyclics Screen Ur Amphetamines Screen U Benzodiazepines Scrn Urine Cocaine Screen Ur THC Screen Ethyl Alcohol 10/23/18 10/23/18 10/23/18 08:45 08:45 08:45 WBC RBC Hgb Hct MCV MCH MCHC RDW Plt Count MPV Immature Gran % Neutrophils % Lymphocytes % Monocytes % Eosinophils % Basophils % Absolute Neutrophils Absolute Lymphocytes Absolute Monocytes Absolute Eosinophils Absolute Basophils PT INR APTT Sodium 145 Potassium 4.3 D Chloride 111 H Carbon Dioxide 26.4 Anion Gap 7.6 BUN 15 Creatinine 0.95 Estimated GFR/1.73 m2 >= 60.00 Glucose 100 Calcium 8.1 L Magnesium Total Bilirubin AST ALT Alkaline Phosphatase Ammonia Total Protein Albumin Acetylsalicylic Ac Allg Cancelled Urine Color Urine Clarity Urine pH Ur Specific [place] Urine Protein Urine Ketones Urine Blood Urine Nitrite Urine Bilirubin Urine Urobilinogen Ur Leukocyte Esterase Urine Glucose Salicylates 2.8 Urine Opiates Screen Urine Methadone Screen Acetaminophen Ur Barbiturates Screen Total Valproic Acid Ur Tricyclics Screen Ur Amphetamines Screen U Benzodiazepines Scrn Urine Cocaine Screen Ur THC Screen Ethyl Alcohol 10/23/18 10/22/18 10/22/18 08:45 20:35 20:35 WBC RBC Hgb Hct MCV MCH MCHC RDW Plt Count MPV Immature Gran % Neutrophils % Lymphocytes % Monocytes % Eosinophils % Basophils % Absolute Neutrophils Absolute Lymphocytes Absolute Monocytes Absolute Eosinophils Absolute Basophils PT INR APTT Sodium Potassium Chloride Carbon Dioxide Anion Gap BUN Creatinine Estimated GFR/1.73 m2 Glucose Calcium Magnesium Total Bilirubin AST ALT Alkaline Phosphatase Ammonia Total Protein Albumin Acetylsalicylic Ac Allg Urine Color Yellow Urine Clarity Clear Urine pH 6.5 Ur Specific [place] 1.010 Urine Protein Negative Urine Ketones Negative Urine Blood Negative Urine Nitrite Negative Urine Bilirubin Negative Urine Urobilinogen 0.2 Ur Leukocyte Esterase Negative Urine Glucose Negative Salicylates Urine Opiates Screen Negative Urine Methadone Screen Negative Acetaminophen Ur Barbiturates Screen Negative Total Valproic Acid 126.7 H Ur Tricyclics Screen Negative Ur Amphetamines Screen Negative U Benzodiazepines Scrn Negative Urine Cocaine Screen Negative Ur THC Screen Positive Ethyl Alcohol 10/22/18 10/22/18 10/22/18 20:14 20:14 20:14 WBC 9.12 RBC 4.15 L Hgb 12.9 L Hct 37.5 L MCV 90.4 MCH 31.1 MCHC 34.4 RDW 12.9 Plt Count 216 MPV 11.2 H Immature Gran % 0.2 Neutrophils % 55.5 Lymphocytes % 28.8 Monocytes % 12.2 Eosinophils % 2.9 Basophils % 0.4 Absolute Neutrophils 5.06 Absolute Lymphocytes 2.63 Absolute Monocytes 1.11 H Absolute Eosinophils 0.26 Absolute Basophils 0.04 PT 9.7 INR 1.0 APTT 22.2 Sodium Potassium Chloride Carbon Dioxide Anion Gap BUN Creatinine Estimated GFR/1.73 m2 Glucose Calcium Magnesium Total Bilirubin AST ALT Alkaline Phosphatase Ammonia Total Protein Albumin Acetylsalicylic Ac Allg Urine Color Urine Clarity Urine pH Ur Specific [place] Urine Protein Urine Ketones Urine Blood Urine Nitrite Urine Bilirubin Urine Urobilinogen Ur Leukocyte Esterase Urine Glucose Salicylates Urine Opiates Screen Urine Methadone Screen Acetaminophen Ur Barbiturates Screen Total Valproic Acid 57.7 Ur Tricyclics Screen Ur Amphetamines Screen U Benzodiazepines Scrn Urine Cocaine Screen Ur THC Screen Ethyl Alcohol 10/22/18 10/22/18 20:14 20:14 WBC RBC Hgb Hct MCV MCH MCHC RDW Plt Count MPV Immature Gran % Neutrophils % Lymphocytes % Monocytes % Eosinophils % Basophils % Absolute Neutrophils Absolute Lymphocytes Absolute Monocytes Absolute Eosinophils Absolute Basophils PT INR APTT Sodium 145 Potassium 3.4 L Chloride 110 H Carbon Dioxide 25.9 Anion Gap 9.1 BUN 16 Creatinine 0.91 Estimated GFR/1.73 m2 >= 60.00 Glucose 92 Calcium 8.1 L Magnesium 2.1 Total Bilirubin 0.1 L AST 8 L ALT 16 Alkaline Phosphatase 82 Ammonia Total Protein 5.8 L Albumin 3.1 L Acetylsalicylic Ac Allg Urine Color Urine Clarity Urine pH Ur Specific [place] Urine Protein Urine Ketones Urine Blood Urine Nitrite Urine Bilirubin Urine Urobilinogen Ur Leukocyte Esterase Urine Glucose Salicylates Urine Opiates Screen Urine Methadone Screen Acetaminophen < 2 L Ur Barbiturates Screen Total Valproic Acid Ur Tricyclics Screen Ur Amphetamines Screen U Benzodiazepines Scrn Urine Cocaine Screen Ur THC Screen Ethyl Alcohol < 3.0 PFSH Medical History PTSD (post-traumatic stress disorder) (Acute) Degenerative arthritis (Chronic) Depression (Chronic) Social History Smoking/Tobacco Use Status: Current every day Tobacco Type: cigarettes Tobacco: How many years used: 36 Alcohol Intake: former Drug use: Daily Substance use type: marijuana Do you feel safe at home: No Do you feel safe in your relationship?: No Additional Social history: Pt wont specify why he doesnt feel safe at home, I just dont feel safe anywhere
--- NOTE | 2018-10-23 16:57 | PDOC.CMIN ---
- If Service Date Differs Date of service: 10/23/18 Time of Service: 16:57 Care Management Initial Assess REASON FOR HOSPITALIZATION:: overdose PAST MEDICAL HISTORY/PAST SURGICAL HISTORY:: Medical History. PTSD (post-traumatic stress disorder) (Acute). Degenerative arthritis (Chronic). Depression (Chronic). patient reports that he has MS PREVIOUS FUNCTIONAL STATUS/SOCIAL/FAMILY SUPPORTS:: Lm lives in a single family home with his mother, step father and a boarder. He states he has MS and is unable to walk very far without the use of crutches. He says he is supposed to use 2 crutches but often only uses one out of pride. Lm reports being 100% disabled. Until 3 years ago he worked for the [employer]. Lm does not drive. He identifies his mother as his main support. He is . CURRENT FUNCTIONAL STATUS:: Lm was sitting up in bed during CM visit. CPSO was in attendance. He readily engaged in conversation and maintained eye contact. Lm states that he only took the medications because he wanted to sleep. He said he has insomnia and just really needed to sleep.He denies suicidal thoughts now and has no intention of doing this again. (Please see mental health note.). Lm states that he wants to be discharged home today and will leave anyway if the doctor does not discharge him. ADVANCE DIRECTIVES:: Lm has none and is not interested in completing the forms. Has patient been provided with information about the portal?: Yes Did the patient sign up for the portal?: No CODE STATUS:: Full Code INSURANCE COVERAGE / FINANCIAL ISSUES:: Medicaid [place] CURRENT HOME/COMMUNITY SERVICES/EQUIPMENT:: Uses forearm crutches and has a walker PRIMARY CARE PHYSICIAN:: Bladimir Gomes POTENTIAL DISCHARGE NEEDS:: Follow up with psychiatrist, therapist and discharge plan of care PATIENT/FAMILY EDUCATION NEEDS:: Discharge plan, follow up plan of care and [facility]. ANTICIPATED BARRIERS TO DISCHARGE:: Intends to leave AMA TRANSPORTATION:: unknown PLAN:: Lm is being evaluated following an intentional overdose. He will likely be discharged home with no additional services. He will be followed by his psychiatrist in the community. CM will provide support to the patient and discharge planning.
--- NOTE | 2018-10-23 17:24 | INITIAL_ITS ---
- If Service Date Differs Date of service: 10/23/18 Time of Service: 16:57 Care Management Initial Assess REASON FOR HOSPITALIZATION:: overdose PAST MEDICAL HISTORY/PAST SURGICAL HISTORY:: Medical History. PTSD (post- traumatic stress disorder) (Acute). Degenerative arthritis (Chronic). Depression (Chronic). patient reports that he has MS PREVIOUS FUNCTIONAL STATUS/SOCIAL/FAMILY SUPPORTS:: Lm lives in a single family home with his mother, step father and a boarder. He states he has MS and is unable to walk very far without the use of crutches. He says he is supposed to use 2 crutches but often only uses one out of pride. Lm reports being 100% disabled. Until 3 years ago he worked for the [employer]. Lm does not drive. He identifies his mother as his main support. He is . CURRENT FUNCTIONAL STATUS:: Lm was sitting up in bed during CM visit. CPSO was in attendance. He readily engaged in conversation and maintained eye contact. Lm states that he only took the medications because he wanted to sleep. He said he has insomnia and just really needed to sleep.He denies suicidal thoughts now and has no intention of doing this again. (Please see mental health note.). Lm states that he wants to be discharged home today and will leave anyway if the doctor does not discharge him. ADVANCE DIRECTIVES:: Lm has none and is not interested in completing the forms. Has patient been provided with information about the portal?: Yes Did the patient sign up for the portal?: No CODE STATUS:: Full Code INSURANCE COVERAGE / FINANCIAL ISSUES:: Medicaid [place] CURRENT HOME/COMMUNITY SERVICES/EQUIPMENT:: Uses forearm crutches and has a walker PRIMARY CARE PHYSICIAN:: Bladimir Gomes POTENTIAL DISCHARGE NEEDS:: Follow up with psychiatrist, therapist and discharge plan of care PATIENT/FAMILY EDUCATION NEEDS:: Discharge plan, follow up plan of care and [facility]. ANTICIPATED BARRIERS TO DISCHARGE:: Intends to leave AMA TRANSPORTATION:: unknown PLAN:: Lm is being evaluated following an intentional overdose. He will likely be discharged home with no additional services. He will be followed by his psychiatrist in the community. CM will provide support to the patient and discharge planning.
== END 2018-10-23 17:25 | disposition left against medical advice (07) ==
LOC: ER 21:33 → MS 22:46
PROVIDERS: Nurse Practitioner; Admitting Provider General Practice; Emergency Provider Emergency Medicine; PCP Family Medicine; Visit Provider Internal Medicine
DX: T50.992A Poisoning by other drugs, medicaments and biological substances, intentional self-harm, initial encounter (principal); F43.12 Post-traumatic stress disorder, chronic; F41.8 Other specified anxiety disorders; E72.20 Disorder of urea cycle metabolism, unspecified; R45.851 Suicidal ideations; Z53.29 Procedure and treatment not carried out because of patient's decision for other reasons
CPT/HCPCS: 36415; 80048; 80053; 80307; 86003; 93005; 99222; 99239; 99285; 80164; 80320; 80329; 81003; 82140; 83735; 85025; 85610; 85730; 93010; 99217; 99219; 99284; G0378

== ENCOUNTER 2019-10-22 08:11 | Outpatient (CLI) | payer MEDICAID, SELFPAY ==
--- NOTE | 2019-10-22 11:59 | DI.RAD_ITS ---
EXAM: XR SHOULDER RT COMPLETE 2+V CLINICAL HISTORY: OSTEOARTHRITIS OF RT SHOULDER, M19.011. TECHNIQUE: 2D digital imaging was performed. COMPARISON: No exams were available for comparison FINDINGS: There are moderate hypertrophic changes seen at the acromioclavicular joint consistent with osteoarth ritis. The glenohumeral joint is well maintained. The bones are intact and normally mineralized. T he soft tissues are unremarkable IMPRESSION: Degenerative changes of the right AC joint. DATA REPOSITORY: RADIATION DOSE DELIVERED:
== END 2019-10-22 08:31 ==
PROVIDERS: PCP Family Medicine; Visit Provider Family Medicine
DX: M25.511 Pain in right shoulder (principal); M19.011 Primary osteoarthritis, right shoulder
CPT/HCPCS: 73030

== ENCOUNTER 2020-07-28 02:20 | Outpatient (CLI) | payer MEDICAID, SELFPAY ==
[2020-07-29 04:40] LABS: Vitamin D 25 Total 17.5 ng/ml (30-100)
== END 2020-07-28 02:21 | disposition home or self-care (01) ==
LOC: LBO 02:20
PROVIDERS: PCP Family Medicine; Visit Provider Naturopath
DX: F32.9 Major depressive disorder, single episode, unspecified (principal); G35 Multiple sclerosis; E55.9 Vitamin D deficiency, unspecified; F43.10 Post-traumatic stress disorder, unspecified
CPT/HCPCS: 36415; 82306

== ENCOUNTER 2020-11-12 02:41 | Outpatient (CLI) | payer MEDICAID, SELFPAY ==
--- NOTE | 2020-11-12 | DI.MRI_ITS ---
Exam(s) MR UPPER JOINT LT WO CLINICAL HISTORY: CHRONIC INCREASING JOSR SHOULDER PAIN, m25.512. TECHNIQUE: Multiplanar multisequence MRI was performed. COMPARISON: None FINDINGS: MR examination of the shoulder was performed according to the usual protocol. There is no significant effusion of the glenohumeral joint. Minimal fluid in the subacromial subdelt oid bursa. Bones and labrum: Hypertrophic changes of the acromioclavicular joint noted with abnormal signal in t he adjacent bones. Mild impingement on supraspinatus myotendinous junction region. Mild subchondral cyst formation of the greater tuberosity of the humerus. Glenoid with labrum appears effaced and th ere may be a superior tear of the labrum, suboptimally visualized on this noncontrast examination but most prominent anterosuperiorly period. Rotator cuff: There is mildly abnormal signal of supraspinatus tendon and subscapularis tendon. The re are small areas intrasubstance and inferior surface tearing of infraspinatus, supraspinatus, and s ubscapularis. No definite full-thickness tear identified involving the rotator cuff. There is abnormal signal in the rotator interval raising the possibility of tear of the [place] l and/or superior glenohumeral ligaments period. Biceps tendon and anchor: Biceps tendon and anchor show normal signal and no evidence of a tear. Idalia ps tendon is normally positioned in the bicipital groove. IMPRESSION: Degenerative changes of glenohumeral and acromioclavicular joints. Possible anterosuperior labral te ar. Minor intrasubstance and undersurface tearing of infraspinatus, supraspinatus, and subscapularis. No full thickness tear identified. Abnormal signal also noted in rotator interval structures. DATA REPOSITORY:
--- NOTE | 2020-11-12 | DI.MRI_ITS ---
Exam(s) MR UPPER JOINT RT WO CLINICAL HISTORY: PAIN RT SHOULDER, M25.511. TECHNIQUE: Multiplanar multisequence MRI was performed. COMPARISON: None FINDINGS: MR examination of the shoulder was performed according to the usual protocol. There is no significant effusion of the glenohumeral joint. Slight fluid in the subacromial subdelto id bursa. Bones and labrum: There are hypertrophic degenerative changes at the acromioclavicular joint.. Gleno id labrum shows minimal linear signal superiorly which may represent a nondisplaced SL AP tear.. Rotator cuff: The supraspinatus tendon and myotendinous junction is impinged superiorly by inferior hypertrophic changes at the AC joint. There is associated abnormal signal in the mid to distal supra spinatus tendon, there is minor intrasubstance and inferior surface tearing of the distal supraspinat us. The subscapularis, infraspinatus, and teres minor muscles and tendons show normal signal and no evide nce of a tear. Rotator interval structures are unremarkable with no evidence of a tear. Biceps tendon and anchor: Biceps tendon and anchor show normal signal and no evidence of a tear. Idalia ps tendon is normally positioned in the bicipital groove. IMPRESSION: Hypertrophic changes at the AC joint cause impingement myotendinous junction region and tendon of the supraspinatus. Minor intrasubstance and inferior surface tearing of the distal supra spinatus is no michael. No full-thickness rotator cuff tear. Question linear signal in superior glenoid labrum could represent an SL AP tear, however this is not confirmed on this noncontrast study. DATA REPOSITORY:
== END 2020-11-12 03:01 ==
PROVIDERS: PCP Family Medicine; Visit Provider Family Medicine
DX: M25.811 Other specified joint disorders, right shoulder (principal); M75.101 Unspecified rotator cuff tear or rupture of right shoulder, not specified as traumatic; M19.012 Primary osteoarthritis, left shoulder; M75.102 Unspecified rotator cuff tear or rupture of left shoulder, not specified as traumatic
CPT/HCPCS: 73221

== ENCOUNTER 2020-11-30 11:57 | Outpatient (CLI) | payer MEDICAID, SELFPAY ==
--- NOTE | 2020-11-30 11:45 | DI.RAD_ITS ---
Exam(s) XR SHOULDER LT COMPLETE 2+V EXAM: XR SHOULDER LT COMPLETE 2+V CLINICAL HISTORY: left shoulder pain. TECHNIQUE: 2D digital imaging was performed. COMPARISON: MR MR UPPER JOINT LT WO from 11/12/2020 FINDINGS: BONES: No acute fracture is present. No bony destructive lesion is seen. Subchondral cysts near the greater tuberosity. JOINTS: No dislocation present. Mild spurring at the AC joint and rim of the glenoid. The glenohume ral joint space is well maintained. SOFT TISSUE: Normal. No tendon or joint space calcifications. IMPRESSION: Mild degenerative changes. DATA REPOSITORY: RADIATION DOSE DELIVERED:
== END 2020-11-30 11:58 | disposition home or self-care (01) ==
LOC: DIORS 11:58
PROVIDERS: PCP Family Medicine; Referring Provider Family Medicine; Visit Provider Student in an Organized Health Care Education/Training Program
DX: M19.012 Primary osteoarthritis, left shoulder (principal)
CPT/HCPCS: 73030

== ENCOUNTER 2021-03-16 03:10 | Outpatient (CLI) | payer MEDICAID, SELFPAY ==
[2021-03-16 12:46] LABS: Source Nasal/Nares
[2021-03-16 14:24] LABS: COVID-19 PCR Negative (Negative)
== END 2021-03-16 03:11 | disposition home or self-care (01) ==
LOC: LBO 03:10
PROVIDERS: PCP Family Medicine; Visit Provider Student in an Organized Health Care Education/Training Program
DX: Z20.822 Contact with and (suspected) exposure to COVID-19 (principal)
CPT/HCPCS: 87635

== ENCOUNTER 2021-03-18 09:44 | Day surgery (SDC) | payer MEDICAID, SELFPAY ==
[2021-03-18] VITALS (8 sets, daily range): BP systolic 105–126; BP diastolic 67–94; PULSE 65–99; RESP 12–17; TEMP 36.2–36.4; O2SAT 97–100; BMI 27.6
[2021-03-18] MEDS: Lactated Ringers 1,000 ML 100 ML IV (10:27)
--- NOTE | 2021-03-18 10:27 | W.ANESPRE ---
General Info Date of Service Date Performed: 03/18/21 Height: 5 ft 9.5 in Weight: 86 kg Body Mass Index (BMI): 27.6 Surgical Procedure: Operation Date: 03/18/21 10:10 Proposed Procedures Side Surgeon p Shoulder Arthroscopy w/ extensive debridement, biceps tenodesis, subacromial decompression, distal clavicle excision Right Yuri Ewing MD Meds Allergies and Home Medications Allergies Allergy/AdvReac Type Severity Reaction Status Date / Time trazodone Allergy Verified 03/18/21 10:00 baclofen AdvReac nausea/vomi Verified 03/18/21 10:00 ting morphine AdvReac Nausea Verified 03/18/21 10:00 Home Medication Medication Instructions Recorded diclofenac potassium 50 mg tablet 50 mg PO BID 12/01/20 gabapentin 300 mg capsule 1,200 mg PO TID cap 12/01/20 prazosin 1 mg capsule 3 mg PO QHS cap 12/01/20 propranolol 10 mg tablet 10 mg PO BID PRN 12/01/20 nicotine 21 mg/24 hr daily 1 patch TRANSDERMAL DAILY 03/09/21 transdermal patch risperidone 3 mg tablet 2 mg PO BID tab 03/09/21 rituximab 10 mg/mL IV 03/09/21 concentrate,intravenous sumatriptan succinate 25 mg tablet 25 mg PO ONCE 03/09/21 tizanidine 4 mg tablet 4 mg PO TID PRN 03/09/21 venlafaxine 150 mg tablet,extended 75 mg PO DAILY tab 03/09/21 release 24 hr Current Visit Medications: Current Medications Generic Name Dose Route Start Last Admin Trade Name Freq PRN Reason Stop Dose Admin Ringer's Solution 1,000 mls @ 100 mls/hr 03/18/21 06:00 IV 04/16/21 23:59 INFUSION SHAYLEE Cefazolin Sodium/Dextrose 2 gm in 50 mls @ 100 mls/hr 03/18/21 06:00 Ancef Duplex IVPB 03/18/21 16:00 PREOP SHAYLEE IV Miscellaneous Supplies 1 each 03/18/21 06:00 Iv Access IV 04/16/21 23:59 DIRECTED SHAYLEE Sodium Chloride 0 ml 03/18/21 06:00 Normal Saline Flush 10 Ml Syr IV 04/16/21 23:59 PRN PRN Sodium Chloride 0 ml 03/18/21 06:00 Normal Saline 10 Ml Vial IJ 04/16/21 23:59 DIRECTED PRN Sterile Water 0 ml 03/18/21 06:00 Water,Injection,Sterile 10 Ml Vial IJ 04/16/21 23:59 DIRECTED PRN PFSH Active Problems Active Problems: Problem Status Onset Code Overdose T50.901A Left rotator cuff tear M75.102 Rotator cuff tear, right M75.101 Bilateral shoulder bursitis M75.51, M75.52 Impingement syndrome of both shoulders M75.41, M75.42 Tendinitis of long head of biceps brachii of both shoulders M75.21, M75.22 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 Multiple sclerosis, primary progressive G35 No-show for appointment Z53.29 Arthritis of right acromioclavicular joint M19.011 Medical History Medical History (Updated 03/18/21 @ 10:04 by Joseluis Arrington) Arthritis of right acromioclavicular joint Degenerative arthritis Depression Multiple sclerosis PTSD (post-traumatic stress disorder) Tobacco Smoking/Tobacco Use Status: Current every day Tobacco Type: cigarettes Tobacco: How many years used: 36 Alcohol Alcohol Intake: former Substance Use Substance use: Daily Substance use type: marijuana Vital Signs and Lab Results Vital Signs Most Recent Vital Signs in EMR: Most Recent Vital Signs Temp Pulse Resp BP Pulse Ox 36.3 C L 67 17 114/94 H 97 03/18/21 10:04 03/18/21 10:04 03/18/21 10:04 03/18/21 10:04 03/18/21 10:04 Lab Results Blood Type / Crossmatch: No Data to Display Complete Blood Count: No Data to Display Complete Metabolic Panel: No Data to Display Liver Function Panel: No Data to Display Coagulation Panel: No Data to Display Cardiac Panel: No Data to Display Arterial Blood Gas: No Data to Display Venous Blood Gas: No Data to Display Pancreas Panel: No Data to Display Thyroid Panel: No Data to Display Infectious Disease: Coronavirus (COVID-19)(PCR) Negative (Negative) 03/16/21 11:01 03/16/21 Coronavirus 2019 Source Nasal/Nares 03/16/21 11:01 03/16/21 Blood Cultures: No Data to Display Toxicology Panel: No Data to Display Anesthesia Assessment and Plan Anesthesia History Personal History: No History of Anesthesia Complications Family History: No Family History of Anesthesia Complications Exercise Tolerance Exercise Tolerance: Metabolic Equivalents>4 Pertinent Negatives Pertinent Negatives: No Symptoms of GERD Cardiac & Pulmonary Exam Cardiac Exam: Normal S1/S2 Heart Sounds Pulmonary Exam: Clear Bilateral Breath Sounds Airway Exam Known Difficult Airway: No Mallampati Class: 2 Mouth Opening: Normal (> 3cm) Thyromental Distance: Greater than 3 cm Neck Range of Motion: Full ROM Neck Circumference: Normal Teeth Condition: Generalized Poor Dentition ASA Classification ASA Score: ASA 3 Emergency Case?: No NPO Status NPO Status: NPO Clears >2 hours, Solids >8 hours Anesthesia Plan Resuscitation Status: Full Code Anesthesia Technique: General Anesthesia Airway Planned: Endotracheal Tube Pain Management: Surgeon and patient request nerve block Monitors Used: Standard Monitors Preoperative Comments:: MS mostly results in memory issues and muscle aches. No trouble swallowing or getting around.
--- NOTE | 2021-03-18 11:39 | NUR.NOTE ---
Kalia Allen from anesthesia to bedside. Right supraclavicular block done without incident. Premedicated with 2 mg Versed tolerated well. Remained in NSR with stable BP. O2 sats 99% on room air. Breathing easily. Nursing Note:
--- NOTE | 2021-03-18 11:57 | W.ANESNERVE ---
Nerve Block Single Injection Procedure Date and Time Date Performed: 03/18/21 Procedure Start: :28 Location Where Procedure Performed Procedure Location: Day Surgery Unit Reason Performed: Postoperative Analgesia Requesting Provider: Yuri Ewing Timeout Performed Timeout Performed: Yes Monitoring Used ECG, Blood Pressure and SpO2 Sterility Sterility: Hand Hygiene, Surgical Cap, Surgical Mask, Sterile Gloves and Chlorhexidine Sedation Given During Procedure Sedation Given (Indicate Dose Given): Versed IV Dose:: 2 mg Patient Mental Status Patient Mental Status: Awake Nerve Block 1st Nerve Block: Laterality: Right Block Type: Interscalene Needle / Catheter Used: 80mm SonoPlex II Local Anesthetic Bolus (Indicate Dose Given): Lidocaine used for local infiltration of skin, Injected in 3-5ml increments after negative blood aspiration, Bupivacaine 0.5% Dose:: 10 ml and Exparel Dose:: 10 ml Additives (Indicate Dose Given): None Ultrasound: Sterile probe cover and gel used Ultrasound Image Saved?: Yes Nerve Stimulator: Not Used Paresthesia: None Procedure Tolerated: No Complications Procedure Outcome: Successful Performed By: Raymundo Valenzuela
[2021-03-18] MEDS: ceFAZolin 2 GM/50 ML BAG IVPB (12:22)
[2021-03-18] MEDS: EPINEPHrine 30 MG/30 ML VIAL (13:36)
--- NOTE | 2021-03-18 13:45 | W.PM.DSUDISC ---
Discharge Plan Disposition Patient Disposition: HOME Condition: Stable Discharge Details Reason For Visit: Right shoulder surgery Attending Provider: Yuri Ewing Primary Care Provider: Michael Viveros Home Meds and New Rx's Prescriptions: New aspirin 81 mg tablet,delayed release (DR/EC) 81 mg PO DAILY 14 Days Qty: 14 RF: 0 naproxen 250 mg tablet 250 - 500 mg PO BID PRN (Reason: Moderate pain or swelling) Qty: 30 RF: 0 oxycodone 5 mg tablet 5 - 10 mg PO Q4H PRN (Reason: moderate to severe pain) Qty: 18 RF: 0 Continued diclofenac potassium 50 mg tablet 50 mg PO BID RF: 0 propranolol 10 mg tablet 10 mg PO BID PRN (Reason: anxiety) RF: 0 prazosin 1 mg capsule 3 mg PO QHS RF: 0 gabapentin 300 mg capsule 1,200 mg PO TID RF: 0 venlafaxine 150 mg tablet extended release 24hr 75 mg PO DAILY RF: 0 risperidone 3 mg tablet 2 mg PO BID RF: 0 nicotine [Nicoderm CQ] 21 mg/24 hr patch 24 hour 1 patch transdermal DAILY RF: 0 sumatriptan succinate 25 mg tablet 25 mg PO ONCE RF: 0 tizanidine 4 mg tablet 4 mg PO TID PRNRF: 0 rituximab 10 mg/mL concentrate IV RF: 0 Discharge Instructions Additional Instructions: Surgery: Right shoulder arthroscopy with biceps tenodesis, extensive debridement, subacromial decompression, and distal clavicle excision. Activity: You should gradually increase range of motion motion and use of your shoulder. Please perform daily stretching exercises. You may use your shoulder for all regular activities. Avoid heavy lifting, reaching overhead, and lifting away from body for approximately 6 to 8 weeks. You may use the sling whenever you are out of the house for a few weeks. At home it is best to remove the sling and rest the arm on a pillow at your side or support the operative side with your other hand. A physical therapy prescription will be sent electronically to start in about 2-3 weeks. Prescriptions: Aspirin 81 mg take 1 daily to prevent a blood clot for 2 weeks Naproxen 250 mg take 1-2 every 12 hours with a meal as needed for moderate pain (do not use at the same time as other NSAIDs) Oxycodone 5 mg take 1-2 every 4-6 hours as needed for severe pain You may use [id number] Tylenol (acetaminophen) as needed for mild pain. These pain medications may be taken all at once or in different combinations as needed. Also, recommend Colace (docusate) as a stool softener as surgery and pain medicine cause constipation. Dressings: Remove shoulder bandage after 3 days. Leave the sticky Steri-Strips in place until they fall off or remove them after you shower. Cover the incisions with Band-Aids or leave them open to air. You may shower after 5 days. Follow-up: 10-[address] Ewing You may take off the leg compression stockings this evening at home. You may also leave them on a few days longer if you have a history of leg swelling or edema. Let us know right away if you develop any redness, drainage, fevers, chest pain, or trouble breathing. Do not drink alcohol or drive for at least 24 hours after anesthesia. Please call the office during business hours with any questions or concerns. Referrals: Yuri Ewing MD [ [facility] STAFF PHYSICIAN] - Discharge Orders Discharge Orders: Discharge Order (Routine); Ordered 03/18/21 Ordered By: Yuri Ewing DS: Diagnosis Discharge Diagnosis (1) Rotator cuff tear, right: Status: Acute (2) Bilateral shoulder bursitis: Status: Acute (3) Impingement syndrome of both shoulders: Status: Acute (4) Tendinitis of long head of biceps brachii of both shoulders: Status: Acute (5) Arthritis of right acromioclavicular joint: Status: Chronic
[2021-03-18] MEDS: fentaNYL 100 MCG/2 ML VIAL IVP ×2 (14:05→14:14)
--- NOTE | 2021-03-18 14:30 | W.ANESPOSTOP ---
Postoperative Evaluation Date, Time and Location Date Performed: 03/18/21 Time Performed: 14:30 Patient Location: Day Surgery Unit Vital Signs Most Recent Imported Vital Signs: Most Recent Vital Signs Temp Pulse Resp BP Pulse Ox 36.2 C L 65 12 111/69 100 03/18/21 14:15 03/18/21 14:15 03/18/21 14:15 03/18/21 14:15 03/18/21 14:15 Pain Score Most Recent Pain Score: Most Recent Pain Score Pain Level 5 03/18/21 14:15 Assessment Mental Status: Awake (Alert & Oriented to Patient Baseline) Airway and Respiratory Function: Patent airway with normal (patient baseline) respiratory exam Cardiovascular Function: Hemodynamically Stable Hydration Status: Adequately Hydrated Nausea & Vomiting: No Nausea or Vomiting Pain: Pain is tolerable per patient Peripheral Nerve Block: Regional nerve block not resolved at time of post operative discharge
--- NOTE | 2021-03-18 15:00 | W.PM.OP ---
Date of service: 03/18/21 Time of Service: 13:00 Operative Note Operative Note DATE OF PROCEDURE: 03/18/21 PRE-OP DIAGNOSIS: Right: 1. Rotator cuff tear 2. LHB tendinopathy 3. Bursitis 4. Impingement 5. AC joint arthritis POST-OP DIAGNOSIS: other Right: 1. Rotator cuff tear 2. SLAP tear 3. Bursitis 4. Impingement 5. AC joint arthritis PROCEDURE: Right: 1. An all-arthroscopic suprapectoral biceps tenodesis was performed through an anterior portal using a Loop N Tack method with a SutureTape FiberLink cinched around and through the tendon. The biceps was tenotomized from the labrum and fixated with a suture anchor at the superior margin of the bicipital groove. 2. Extensive debridement, CPT# 40987. This involved using arthroscopic hand instruments, power instruments, and radiofrequency instruments to release the long head of the biceps tendon and debride areas of labral tearing, synovitis, partial rotator cuff tearing, capsular adhesions, and chondromalacia within the glenohumeral joint anteriorly, superiorly and posteriorly. 3. Arthroscopic distal clavicle excision, CPT# 63517. This involved arthroscopically exposing the underside of the acromioclavicular joint, smoothing out bone spurs, and removing approximately 5 mm of the distal clavicle so there was no bone left engaging the acromion. 4. Subacromial decompression with partial acromioplasty, CPT# 78681. This involved using arthroscopic power instruments and a radiofrequency wand to complete a bursectomy and remove bone spurs on the undersurface of the acromion. The clinic assistant was medically required in order to help assist in techniques above, which require positioning the arm, holding the arthroscope, and manipulating multiple instruments and sutures at the same time. This cannot be done without the help of an experienced clinic assistant. SURGEON: Yuri Ewing ECHOCARDIOGRAPHY TECHNOLOGIST: Daniel Sal ANESTHESIA TYPE: Local By Surgeon, General LMA/ETT and Primary Nerve Block Refer to Anesthesia Record ESTIMATED BLOOD LOSS: 15 PATHOLOGY: none sent COMPLICATIONS: None Patient was transported to: PACU Patient's condition: stable Implants: Arthrex: 4.75mm SwiveLocks x 1 Indications: The patient was diagnosed with the above conditions and appropriately indicated for surgical intervention. Please see complete medical record for details. Findings: Exam under anesthesia: Full range of motion, no instability Glenohumeral joint: Moderate anterior and posterior synovitis. Monitor labral fraying. Type II SLAP tear. Long head biceps injection in the groove. Moderate capsular adhesions [facility] L across subscap to biceps sling. Lesser tuberosity chondromalacia and early marginal osteophytes. Greater tuberosity chondromalacia about a small 5 mm articular sided posterior supraspinatus rotator cuff tear. Intact articular cartilage. Subacromial space: Significant bursitis. Significant impinging distal clavicle acromion. Undersurface acromial bone spur. No bursal rotator cuff tear. Procedure Description: In the operating room, general anesthesia was induced. Bilateral shoulders were examined. The patient was positioned in the beachchair position. All bony prominences were well-padded. Preoperative antibiotics were administered. The shoulder was prepped and draped in the usual sterile fashion. The correct patient, procedure, and side of the procedure were all verified prior to incision. Starting through the posterior portal a standard complete diagnostic arthroscopy was performed of the glenohumeral joint including inspection of the long head of the biceps, anterior and superior labrum, subscapularis tendon, supraspinatus and infraspinatus tendons, and axillary recess. The glenoid and humeral head cartilage as well as the posterior labrum were inspected from an anterior viewing portal. Significant findings and interventions noted above. Notably, there was adhesion between the [facility] subscapularis and anterior capsule. These were dissected apart and released with the radiofrequency wand and arthroscopic scissors appropriately recreating normal anatomy and confirming intact subscapularis and intact [facility]. There is significant labral fraying anterior and posteriorly that was taken back with mechanical shaver as well as a degenerative type II SLAP tear that was debrided to a stable margin. The posterior humeral head about the posterior supraspinatus was positioned for debridement of a small moderate thickness rotator cuff tear as well as chondromalacia about the greater tuberosity under the zone of injury. A rigid cannula was inserted anteriorly. An all-arthroscopic suprapectoral biceps tenodesis was performed through an anterior portal using a Loop N Tack method with a SutureTape FiberLink cinched around and through the tendon. The biceps was tenotomized from the labrum and fixated with a suture anchor at the superior margin of the bicipital groove. A spinal needle was then placed laterally from the acromion through the rotator cuff articular tear for localization on the bursal side. Starting through the posterior portal, the arthroscope was directed into the subacromial space. A lateral 50 yard line lateral portal was created. A combination of power instruments and a radiofrequency ablator were used to debride bursitis anteriorly, posteriorly, and laterally as well as expose and smooth bone spurring on the undersurface of the acromion. The coracoacromial ligament was only minimally released. The bursectomy was completed viewing laterally and working from posteriorly and the rotator cuff was thoroughly inspected with findings noted above. A spinal needle used to localize the rotator cuff about the zone of articular injury. There was no significant thinning and no bursal rotator cuff tearing. The spinal needle was removed. Decision was made to omit any partial articular repair or takedown of repair. The anterior portal was redirected towards the undersurface of the AC joint. A shaver and electrocautery device were used to clear soft tissue from the undersurface of the AC joint. The distalmost 5 mm of the distal clavicle was then removed and smoothed. Care was taken to ensure that proper amount of bone was removed and there was no engaging bone left behind especially superiorly. The shoulder was drained of arthroscopic fluid. All portal sites were copiously irrigated. These incisions were closed using 3-0 Monocryl in a buried fashion and then covered with Mastisol, Steri-Strips, Xeroform, dry gauze, and ABDs. The dressings were covered and secured with Medipore tape. The operative extremity was placed into a sling for immobilization. The patient awoke from anesthesia without complication and was transferred to the recovery room in a stable condition.
== END 2021-03-18 15:20 | disposition home or self-care (01) ==
PROVIDERS: PCP Family Medicine; Visit Provider Student in an Organized Health Care Education/Training Program
PROC: (CPT 29805; principal; 2021-03-18 10:00)
DX: M75.101 Unspecified rotator cuff tear or rupture of right shoulder, not specified as traumatic (principal); M75.41 Impingement syndrome of right shoulder; M75.51 Bursitis of right shoulder; M19.011 Primary osteoarthritis, right shoulder
CPT/HCPCS: 29828; 29823; 29826; 29824; J0690; J1100; J2250; J2405; J2704; J3010

== ENCOUNTER 2021-07-20 02:12 | Outpatient (CLI) | payer MEDICAID, SELFPAY ==
[2021-07-20 12:17] LABS: Source Nasal/Nares
[2021-07-20 16:49] LABS: COVID-19 PCR Negative (Negative)
== END 2021-07-20 02:13 | disposition home or self-care (01) ==
LOC: LBO 02:12
PROVIDERS: PCP Family Medicine; Visit Provider Student in an Organized Health Care Education/Training Program
DX: Z20.822 Contact with and (suspected) exposure to COVID-19 (principal)
CPT/HCPCS: 87635

== ENCOUNTER 2021-07-22 09:22 | Day surgery (SDC) | payer MEDICAID, SELFPAY ==
[2021-07-22] VITALS (9 sets, daily range): BP systolic 109–138; BP diastolic 73–90; PULSE 53–64; RESP 13–21; TEMP 36.3–36.6; O2SAT 94–98; BMI 25.8
--- NOTE | 2021-07-22 08:21 | W.ANESPRE ---
General Info Date of Service Date Performed: 07/22/21 Height: 5 ft 9 in Weight: 79.379 kg Body Mass Index (BMI): 25.8 Surgical Procedure: Operation Date: 07/22/21 11:55 Proposed Procedure Side Surgeon p Shoulder Rotator Cuff Arthroscopic w/Extensive Debridement, Biceps Tenodesis, Subacromial Decompression, Distal Clavicle Excision Left Yuri Ewing MD Meds Allergies and Home Medications Allergies Allergy/AdvReac Type Severity Reaction Status Date / Time trazodone Allergy Verified 07/22/21 09:38 baclofen AdvReac nausea/vomi Verified 07/22/21 09:38 ting morphine AdvReac Nausea Verified 07/22/21 09:38 Home Medication Medication Instructions Recorded diclofenac potassium 50 mg tablet 50 mg PO BID 12/01/20 prazosin 1 mg capsule 3 mg PO QHS cap 12/01/20 propranolol 10 mg tablet 10 mg PO BID PRN 12/01/20 nicotine 21 mg/24 hr daily 1 patch TRANSDERMAL DAILY 03/09/21 transdermal patch (Nicoderm CQ) risperidone 3 mg tablet 2 mg PO BID tab 03/09/21 rituximab 10 mg/mL IV 03/09/21 concentrate,intravenous venlafaxine 150 mg tablet,extended 75 mg PO DAILY tab 03/09/21 release 24 hr aspirin 81 mg tablet,delayed 81 mg PO DAILY 14 Days #14 tab 07/22/21 release naproxen 250 mg tablet 250 - 500 mg PO BID PRN #40 tab 07/22/21 oxycodone 5 mg tablet 5 - 10 mg PO Q4H PRN #18 tab MDD 07/22/21 30 mg Current Visit Medications: Current Medications Generic Name Dose Route Start Last Admin Trade Name Freq PRN Reason Stop Dose Admin Ringer's Solution 1,000 mls @ 100 mls/hr 07/22/21 06:00 IV 08/11/21 23:59 INFUSION SHAYLEE Cefazolin Sodium/Dextrose 2 gm in 50 mls @ 100 mls/hr 07/22/21 06:00 Ancef Duplex IVPB 07/22/21 23:59 PREOP SHAYLEE IV Miscellaneous Supplies 1 each 07/22/21 06:00 Iv Access IV 08/11/21 23:59 DIRECTED SHAYLEE Naproxen 250 - 500 mg 07/22/21 07:13 Naproxen 500 Mg Tab PO BID PRN PRN Oxycodone HCl 5 - 10 mg 07/22/21 07:13 Oxycodone 5 Mg Tab PO Q4H PRN PRN Sodium Chloride 0 ml 07/22/21 06:00 Normal Saline Flush 10 Ml Syr IV 08/11/21 23:59 PRN PRN Sodium Chloride 0 ml 07/22/21 06:00 Normal Saline 10 Ml Vial IJ 08/11/21 23:59 DIRECTED PRN Sterile Water 0 ml 07/22/21 06:00 Water,Injection,Sterile 10 Ml Vial IJ 08/11/21 23:59 DIRECTED PRN PFSH Active Problems Active Problems: Problem Status Onset Code Overdose T50.901A Arthritis of right acromioclavicular joint M19.011 Left rotator cuff tear M75.102 Bilateral shoulder bursitis M75.51, M75.52 Impingement syndrome of both shoulders M75.41, M75.42 Tendinitis of long head of biceps brachii of both shoulders M75.21, M75.22 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 Multiple sclerosis, primary progressive G35 Medical History Medical History Degenerative arthritis Depression Multiple sclerosis being managed Dr. Herrmann in [place] [facility] [place] No-show for appointment PTSD (post-traumatic stress disorder) Rotator cuff tear, right Surgical History Surgical History History of shoulder surgery Right rotator cuff repair Tobacco Smoking/Tobacco Use Status: Current every day Tobacco Type: cigarettes Alcohol Alcohol Intake: former Substance Use Substance use: Daily Substance use type: marijuana Vital Signs and Lab Results Lab Results Blood Type / Crossmatch: No Data to Display Complete Blood Count: No Data to Display Complete Metabolic Panel: No Data to Display Liver Function Panel: No Data to Display Coagulation Panel: No Data to Display Cardiac Panel: No Data to Display Arterial Blood Gas: No Data to Display Venous Blood Gas: No Data to Display Pancreas Panel: No Data to Display Thyroid Panel: No Data to Display Infectious Disease: Coronavirus (COVID-19)(PCR) Negative (Negative) 07/20/21 11:46 07/20/21 Coronavirus 2019 Source Nasal/Nares 07/20/21 11:46 07/20/21 Blood Cultures: No Data to Display Toxicology Panel: No Data to Display Anesthesia Assessment and Plan Anesthesia History Personal History: No History of Anesthesia Complications Family History: No Family History of Anesthesia Complications Exercise Tolerance Exercise Tolerance: Metabolic Equivalents>4 Pertinent Negatives Pertinent Negatives: No Symptoms of GERD, No Major Cardiovascular Symptoms or Complaints, No Major Pulmonary Symptoms or Complaints and No History of CVA/TIA Cardiac & Pulmonary Exam Cardiac Exam: Normal S1/S2 Heart Sounds Pulmonary Exam: Clear Bilateral Breath Sounds Implantable Cardiac Device Does patient have a Pacemaker or an ICD?: No Airway Exam Known Difficult Airway: No Mallampati Class: 2 Mouth Opening: Normal (> 3cm) Thyromental Distance: Greater than 3 cm Neck Range of Motion: Full ROM Neck Circumference: Normal Teeth Condition: Generalized Poor Dentition and Loose or Chipped (Two in the front missing) ASA Classification ASA Score: ASA 3 Emergency Case?: No NPO Status NPO Status: NPO Clears >2 hours, Solids >8 hours Anesthesia Plan Resuscitation Status: Full Code Anesthesia Technique: General Anesthesia Airway Planned: Endotracheal Tube Pain Management: Surgeon and patient request nerve block Monitors Used: Standard Monitors Preoperative Comments:: Nikko Wilkins 03/18/2021: MS mostly results in memory issues and muscle aches. No trouble swallowing or getting around.
[2021-07-22] MEDS: Lactated Ringers 1,000 ML 100 ML IV ×2 (10:08→15:26)
--- NOTE | 2021-07-22 13:00 | W.ANESNERVE ---
Nerve Block Single Injection Procedure Date and Time Date Performed: 07/22/21 Procedure Start: 13:00 Location Where Procedure Performed Procedure Location: Day Surgery Unit Reason Performed: Postoperative Analgesia Requesting Provider: Yuri Ewing Timeout Performed Timeout Performed: Yes Monitoring Used ECG, Blood Pressure, SpO2 and See EMR for corresponding vital signs Sterility Sterility: Hand Hygiene, Surgical Cap, Surgical Mask, Sterile Gloves and Eye Protection Sedation Given During Procedure Sedation Given (Indicate Dose Given): Versed IV Dose:: 2mg Patient Mental Status Patient Mental Status: Awake Nerve Block 1st Nerve Block: Laterality: Left Block Type: Interscalene Needle / Catheter Used: 100mm SonoPlex II Local Anesthetic Bolus (Indicate Dose Given): Lidocaine used for local infiltration of skin, Bupivacaine 0.5% Dose:: 10 and Exparel Dose:: 10ml Additives (Indicate Dose Given): None Ultrasound: Sterile probe cover and gel used Ultrasound Image Saved?: Yes Nerve Stimulator: Not Used Paresthesia: None Procedure Tolerated: No Complications and Patient tolerated well Procedure Outcome: Successful Performed By: Stephanie Glez Supervised By: Raymundo Valenzuela
[2021-07-22] MEDS: ceFAZolin 2 GM/50 ML BAG IVPB (13:27)
[2021-07-22] MEDS: EPINEPHrine 30 MG/30 ML VIAL (14:45)
--- NOTE | 2021-07-22 15:24 | ROE_ITS ---
Operative Note Operative Note DATE OF PROCEDURE: 07/22/21 PRE-OP DIAGNOSIS: Left: 1. Rotator cuff tear 2. LHB tendinopathy 3. Bursitis 4. AC joint arthritis POST-OP DIAGNOSIS: same PROCEDURE: Left: 1. Rotator cuff repair, CPT# 77793. This involved repair of the supraspinatus using a suture anchor to reattach the rotator cuff back to the greater tuberosity. 2. Arthroscopic biceps tenodesis, CPT# 87045. This involved arthroscopically suturing and reattaching the long head of the biceps tendon to the proximal humerus at the superior margin of the bicipital groove with a screw at the correct tension. 3. Extensive debridement, CPT# 58835. This involved using arthroscopic hand instruments, power instruments, and radiofrequency instruments to release the long head of the biceps tendon and debride areas of labral tearing, synovitis, and chondromalacia about the biceps groove within the glenohumeral joint anteriorly, superiorly and posteriorly. 4. Arthroscopic distal clavicle excision, CPT# 63456. This involved arthroscopically exposing the underside of the acromioclavicular joint, smoothing out bone spurs, and removing approximately 5 mm of the distal clavicle so there was no bone left engaging the acromion. 5. Subacromial decompression with partial acromioplasty, CPT# 41232. This involved using arthroscopic power instruments and a radiofrequency wand to complete a bursectomy and remove bone spurs on the undersurface of the acromion. The automotive parts counter assistant was medically required in order to help assist in techniques above, which require positioning the arm, holding the arthroscope, and manipulating multiple instruments and sutures at the same time. This cannot be done without the help of an experienced automotive parts counter assistant. SURGEON: Yuri Ewing DEPARTMENT STORE MANAGER: Daniel Sal ANESTHESIA TYPE: General LMA/ETT and Primary Nerve Block Refer to Anesthesia Record ESTIMATED BLOOD LOSS: 5 PATHOLOGY: none sent COMPLICATIONS: None Patient was transported to: PACU Patient's condition: stable Implants: Arthrex: 4.75mm SwiveLocks x 2 Indications: The patient was diagnosed with the above conditions and appropriately indicated for surgical intervention. Please see complete medical record for details. Findings: Exam under anesthesia: Full symmetrical range of motion, no instability. Glenohumeral joint: Mild articular sided supraspinatus tearing. Moderate anterior synovitis. Intra-articular long head biceps moderate injection and degenerative type SLAP 1 SLAP tear. Subacromial space: Moderate bursitis. Significant impinging distal clavicle on acromion. Largely intact bursal rotator cuff except for central supraspinatus delamination and thinning centrally and laterally correlating with the area on MRI of the injury. Procedure Description: In the operating room, general anesthesia was induced. Bilateral shoulders were examined. The patient was positioned in the beachchair position. All bony prominences were well-padded. Preoperative antibiotics were administered. The shoulder was prepped and draped in the usual sterile fashion. The correct patient, procedure, and side of the procedure were all verified prior to incision. Starting through the posterior portal a standard complete diagnostic arthroscopy was performed of the glenohumeral joint including inspection of the long head of the biceps, anterior and superior labrum, subscapularis tendon, supraspinatus and infraspinatus tendons, and axillary recess. The glenoid and humeral head cartilage as well as the posterior labrum were inspected from an anterior viewing portal. Significant findings and interventions noted above. An all-arthroscopic suprapectoral biceps tenodesis was performed through an anterior portal using a Loop N Tack method with a SutureTape FiberLink cinched around and through the tendon. The biceps was tenotomized from the labrum and fixated with a suture anchor at the superior margin of the bicipital groove. Starting through the posterior portal, the arthroscope was directed into the subacromial space. A lateral 50 yard line lateral portal was created. A combination of power instruments and a radiofrequency ablator were used to debride bursitis anteriorly, posteriorly, and laterally as well as expose and smooth bone spurring on the undersurface of the acromion. The coracoacromial ligament was partially released. The bursectomy was completed viewing laterally and working from posteriorly and the rotator cuff was thoroughly inspected with findings noted above. The anterior portal was redirected towards the undersurface of the AC joint. A shaver and electrocautery device were used to clear soft tissue from the undersurface of the AC joint. The distalmost 5 mm of the distal clavicle was then removed and smoothed. Care was taken to alternate between working through the anterior portal and viewing through the anterior portal to ensure that proper amount of bone was removed and there was no engaging bone left behind especially superiorly. Supraspinatus was a again inspected and all demonstrated reasonable integrity the high-grade nature of the tear on advanced imaging and somewhat thinning and crescent nature of bursal injury decision was made to proceed with speed fix type bursal repair. The degenerative tear tissue was somewhat trephinated. A suture passer was used to shuttle a FiberTape through the medial margin of the tear from anterior to posterior and secured to a lateral single 4.75 mm SwiveLock anchor taking care to ensure no undue tension was applied to this partial tear repair. Repair was inspected through range of motion demonstrated good fixation strength and there was no additional tearing. The shoulder was drained of arthroscopic fluid. All portal sites were copiously irrigated. These incisions were closed using 3-0 Monocryl in a buried fashion and then covered with Mastisol, Steri-Strips, Xeroform, dry gauze, and ABDs. The dressings were covered and secured with Medipore tape. The operative extremity was placed into a sling for immobilization. The patient awoke from anesthesia without complication and was transferred to the recovery room in a stable condition.
--- NOTE | 2021-07-22 15:25 | W.PM.DSUDISC ---
Discharge Plan Disposition Patient Disposition: HOME Condition: Stable Discharge Details Reason For Visit: Left shoulder surgery Attending Provider: Yuri Ewing Primary Care Provider: Michael Viveros Home Meds and New Rx's Prescriptions: New aspirin 81 mg tablet,delayed release (DR/EC) 81 mg PO DAILY 14 Days Qty: 14 0RF naproxen 250 mg tablet 250 - 500 mg PO BID PRNQty: 40 0RF Rx Instructions: take with a meal oxycodone 5 mg tablet 5 - 10 mg PO Q4H MDD 30 mg PRN (Reason: moderate to severe pain) Qty: 18 0RF Continued diclofenac potassium 50 mg tablet 50 mg PO BID 0RF propranolol 10 mg tablet 10 mg PO BID PRN (Reason: anxiety) 0RF prazosin 1 mg capsule 3 mg PO QHS 0RF venlafaxine 150 mg tablet extended release 24hr 75 mg PO DAILY 0RF risperidone 3 mg tablet 2 mg PO BID 0RF nicotine [Nicoderm CQ] 21 mg/24 hr patch 24 hour 1 patch transdermal DAILY 0RF rituximab 10 mg/mL concentrate IV 0RF Discharge Instructions Additional Instructions: Surgery: Left shoulder arthroscopy with rotator cuff repair, biceps tenodesis, extensive debridement, and subacromial decompression. Activity: For 6 weeks, you should keep your arm at your side in a neutral position at all times except for physical therapy. Do not try to lift or raise your arm using your own muscles. You should use the sling whenever you are out of the house. You may have to adjust the abduction pillow or remove it for comfort. At home it is best to remove the sling and rest the arm on a pillow at your side or support the operative side with your other hand. You may allow the arm to dangle at your side. A physical therapy prescription will be sent electronically to begin in about 3 weeks. Prescriptions: Aspirin 81 mg take 1 daily to prevent a blood clot for 2 weeks Naproxen 250 mg take 1-2 every 12 hours with a meal as needed for moderate pain Oxycodone 5 mg take 1-2 every 4-6 hours as needed for severe pain You may use [id number]-ngfyunu Tylenol (acetaminophen) as needed for mild pain. These pain medications may be taken all at once or in different combinations as needed. Also, recommend Colace (docusate) as a stool softener as surgery and pain medicine cause constipation. Dressings: Remove shoulder bandage after 3 days. Leave the sticky Steri-Strips in place until they fall off or remove them after you shower. Cover the incisions with Band-Aids or leave them open to air. You may shower after 5 days. Follow-up: 10-[address] Ewing You may take off the leg compression stockings this evening at home. You may also leave them on a few days longer if you have a history of leg swelling or edema. Let us know right away if you develop any redness, drainage, fevers, chest pain, or trouble breathing. Do not drink alcohol or drive for at least 24 hours after anesthesia. Please call the office during business hours with any questions or concerns. Referrals: Yuri Ewing MD [ [facility] STAFF PHYSICIAN] - Discharge Orders Discharge Orders: Discharge Order (Routine); Ordered 07/22/21 Ordered By: Yuri Ewing DS: Diagnosis Discharge Diagnosis (1) Left rotator cuff tear: Status: Acute (2) Bilateral shoulder bursitis: Status: Acute (3) Impingement syndrome of both shoulders: Status: Acute (4) Tendinitis of long head of biceps brachii of both shoulders: Status: Acute (5) Arthritis of left acromioclavicular joint: Status: Acute
--- NOTE | 2021-07-22 15:39 | W.ANESPOSTOP ---
Postoperative Evaluation Date, Time and Location Date Performed: 07/22/21 Time Performed: 15:39 Patient Location: PACU Vital Signs Most Recent Imported Vital Signs: Most Recent Vital Signs Temp Pulse Resp BP Pulse Ox 36.6 C 57 L 16 131/82 95 07/22/21 15:28 07/22/21 15:28 07/22/21 15:28 07/22/21 15:28 07/22/21 15:28 Pain Score Most Recent Pain Score: Most Recent Pain Score Pain Level 4 07/22/21 15:28 Assessment Mental Status: Awake (Alert & Oriented to Patient Baseline) Airway and Respiratory Function: Patent airway with normal (patient baseline) respiratory exam Cardiovascular Function: Hemodynamically Stable Hydration Status: Adequately Hydrated Nausea & Vomiting: No Nausea or Vomiting Pain: Pain is tolerable per patient (Receiving fentayl) Peripheral Nerve Block: Regional nerve block not resolved at time of post operative discharge
[2021-07-22] MEDS: fentaNYL 100 MCG/2 ML VIAL IVP ×2 (15:40→15:56)
[2021-07-22] MEDS: ACETAMINOPHEN 1,000 MG/100 ML BTL 400 MG IVPB (15:50)
[2021-07-22] MEDS: oxyCODONE 5 MG TAB PO (16:23)
== END 2021-07-22 17:15 | disposition home or self-care (01) ==
LOC: SUR 09:22
PROVIDERS: PCP Family Medicine; Visit Provider Student in an Organized Health Care Education/Training Program
PROC: (CPT 29827; principal; 2021-07-22 11:45)
DX: M75.102 Unspecified rotator cuff tear or rupture of left shoulder, not specified as traumatic (principal); M75.42 Impingement syndrome of left shoulder; M75.22 Bicipital tendinitis, left shoulder; M19.012 Primary osteoarthritis, left shoulder
CPT/HCPCS: 29827; 29828; 29823; 29824; 29826; 76942; J0131; J0690; J1100; J1885; J2001; J2250; J2370; J2405; J3010